=== PATIENT | female | born 1950 | race Caucasian/White ===

== ENCOUNTER → 2024-12-06 | Outpatient (CLI) | payer MEDICARE, SELFPAY ==
[2024-12-06 16:20] LABS: Albumin, Serum 3.8 g/dL (3.4-4.8); Anion Gap 13 (5-15); BUN 22 mg/dL (4-19); BUN/Creat Ratio 16.4 RATIO (10-20); Calcium,Total 9.6 mg/dL (7.6-11.0); Chloride 105 mmol/L (98-108); Creatinine, Serum 1.32 mg/dL (0.70-1.20); EST Glomerular Filtration Rate 42 (>60); Glucose 94 mg/dL (70-99); Potassium 4.8 mmol/L (3.3-5.1); Sodium Level 139 mmol/L (133-145)
== END | disposition home or self-care (01) ==
LOC: MTLAB 11:02
PROVIDERS: PCP Family Medicine; Referring Provider Specialist; Visit Provider Specialist
DX: Z01.818 Encounter for other preprocedural examination (principal)
CPT/HCPCS: 36415; 80048; 82040

== ENCOUNTER 2024-12-13 13:21 | Inpatient (IN) | payer MEDICARE, SELFPAY ==
[2024-12-13] VITALS (7 sets, daily range): BP systolic 124–164; BP diastolic 64–77; PULSE 63–84; RESP 16–18; TEMP 36.5; O2SAT 94–99; BMI 38.9; BMI 37.3
--- NOTE | 2024-12-13 13:39 | EX.ED.DYSGE1 ---
HPI <Dr. Saman Rowell MD - Last Filed: 12/16/24 06:50> History of Present Illness Chief Complaint: Wound Check Detail of Chief Complaint: Sent from surgery due to enlarging abdominal wall hematoma Informant: patient Onset/Context/Timing Onset: Days Context: Sudden Onset Timing: Continuous Quality: Pain, swelling and large hematoma predominately left lower quadrant Location: Left lower quadrant with a expansion to the right lower inguinal area Current Severity: Moderate Maximum Severity: Moderate Worsened by: Lovenox Relieved by: Nothing Associated Symptoms Associated Symptoms: No orthostatic symptoms. No hematuria. No black or maroon stool Narrative Narrative: Patient is a 74-year-old woman. Noticed that she was scheduled for left hip surgery by Dr. Jefe Eastman. The surgery was canceled because of the large hematoma. States her last dose of Lovenox was last evening. She is on anticoagulant because of history of DVT left lower extremity that occurred many years ago and atrial fibrillation. Patient denies hematuria, melena or maroon-colored stool. She denies history of trauma. Prior similar symptoms: No Recent Illness/Hospitalization: No PFSH <Dr. Saman Rowell MD - Last Filed: 12/16/24 06:50> PFSH Medical History Wears glasses Post-menopausal Cancer History of steroid therapy Diabetes Walker as ambulation aid Ambulates with cane Arthritis Kidney stones Anemia High cholesterol DVT (deep venous thrombosis) Easy bruising Excessive bleeding Back pain Non-smoker Shortness of breath on exertion History of edema History of echocardiogram History of stress test Hypertension Cardiology follow-up encounter History of atrial fibrillation Hx of retinal detachment Home Medications ?Medication ?Instructions ?Recorded ?Last Taken ?Type allopurinol 100 mg tablet 100 mg PO DAILY 12/05/24 12/12/24 21:00 History brimonidine 0.2 % eye drops 1 drp ophthalmic (eye) TID 12/05/24 12/13/24 12:00 History cholecalciferol (vitamin D3) 50 50 mcg PO DAILY 12/05/24 12/13/24 08:00 History mcg (2,000 unit) tablet (D3 DOTS) latanoprost 0.005 % eye drops 1 drp ophthalmic (eye) QHS 12/05/24 12/12/24 21:00 History losartan 100 mg tablet 100 mg PO DAILY 12/05/24 12/13/24 09:00 History metformin 500 mg tablet 500 mg PO DAILY 12/05/24 12/12/24 21:00 History metoprolol tartrate 25 mg tablet 25 mg PO BID 12/05/24 12/13/24 History pravastatin 40 mg tablet 40 mg PO DAILY 12/05/24 12/12/24 21:00 History warfarin 5 mg tablet 2.5 mg PO MOTH 12/05/24 12/06/24 History Held on 12/15/24. Instructions: Resume on 12/19/24. warfarin 5 mg tablet 5 mg PO SUTUWEFRSA 12/05/24 12/08/24 History Held on 12/15/24. Instructions: Resume on 12/19/24. diltiazem HCl 180 mg 180 mg PO DAILY 12/13/24 12/12/24 09:00 History capsule,extended release 24 hr, controlled (DILT-XR) ferrous sulfate 325 mg (65 mg 325 mg PO BID 12/13/24 12/13/24 09:00 History iron) tablet (FeroSul) folic acid 800 mcg tablet 800 mcg PO DAILY 12/13/24 12/13/24 08:00 History Allergy/AdvReac Type Severity Reaction Status Date / Time cefazolin (From Ancef) Allergy Severe Itching Verified 12/13/24 13:25 codeine Allergy Severe Nausea/Vom/ Verified 12/13/24 13:25 Diarrhea hydromorphone (From Dilaudid) Allergy Severe Nausea/Vom/ Verified 12/13/24 13:25 Diarrhea meperidine (From Demerol) Allergy Severe Nausea/Vom/ Verified 12/13/24 13:25 Diarrhea metronidazole (From Flagyl) Allergy Severe Hives Verified 12/13/24 13:25 milk (dairy) Allergy Severe Diarrhea Verified 12/13/24 13:25 morphine Allergy Severe Nausea/Vom/ Verified 12/13/24 13:25 Diarrhea Surgical History Hx of toe surgery History of kidney surgery History of surgery of liver Hx of surgical procedure Hx of laparoscopy History of surgery on right wrist History of foot surgery Hx of total knee replacement Hx of hysterectomy Hx of section Hx of bilateral cataract extraction Hx of appendectomy Social History Smoking Status: Never smoker ROS <Dr. Saman Rowell MD - Last Filed: 12/16/24 06:50> ROS ED Constitutional Constitutional ED: Denies chills, fever(s), subjective, sweats or weight loss Eyes Eyes: Denies blurry vision or change in vision ENT ENT ED: Denies ear pain or rhinorrhea Cardiovascular Cardiovascular: Denies chest pain or palpitations Respiratory/Chest Respiratory/Chest: Denies cough, dyspnea or dyspnea on exertion Gastrointestinal Gastrointestinal: Reports abdominal pain; Denies constipation, diarrhea, melena, nausea or vomiting Genitourinary Genitourinary ED: Denies hematuria Musculoskeletal Musculoskeletal: Denies arthralgias or myalgias Integumentary Reports other Details: Large hematoma abdominal wall Neurologic Neurologic: Denies paresthesias or weakness Hematologic/Lymphatic Hematologic/Lymphatic: Reports systems reviewed and no addt'l complaints, except as documented and easy bruising EXAM <Dr. Saman Rowell MD - Last Filed: 12/16/24 06:50> Physical Exam Const Vital Signs: 12/13/24 13:25 12/13/24 15:24 12/13/24 17:00 Temperature 97.7 F L Temperature Source Temporal Pulse Rate 63 84 74 Respiratory Rate 18 16 16 Blood Pressure 127/77 H 124/76 H 164/69 H Blood Pressure Mean 93 92 100 Pulse Ox 97 99 98 Oxygen Delivery Method Room Air Room Air Room Air 12/13/24 19:00 12/13/24 21:00 Temperature Temperature Source Pulse Rate 71 Respiratory Rate Blood Pressure 133/70 H 131/64 H Blood Pressure Mean 91 86 Pulse Ox 96 Oxygen Delivery Method Room Air Positive well nourished and well developed Constitutional Narrative: Patient appears pale. Blood pressure slightly elevated. General Appearance ED: well developed; Negative for pallor HEENT Reports moist mucous membranes HEENT Narrative: Head is atraumatic normocephalic. Ears normal. Nares patent Eyes PERRL and EOMs intact bilaterally Eyes Narrative: Sclera is blue. She has history of osteogenic imperfecta. General Eye ED: Negative for pale conjunctiva or scleral icterus Neck no lymphadenopathy, supple and no JVD Resp normal respiratory effort and clear to auscultation bilaterally Cardio regular rate, S1 normal heart sound, S2 normal heart sound and no murmurs GI GI Narrative: Large hematoma predominate left lower quadrant slightly left upper quadrant inferiorly and extending past midline to the right lower abdomen inguinal area. This is very firm. It is discolored. Does not appear ischemic. Is not pulsatile. Back/Spine no CVA tenderness Extremity normal to inspection Neuro oriented x3 and CN's II-XII intact bilaterally Sensorium / Orientation: alert Psych mental status grossly normal Skin no rashes or lesions noted and no wounds General Skin Exam: Negative for jaundice or pallor <Dr. Nguyễn Diaz DO - Last Filed: 12/14/24 01:00> Physical Exam Const Vital Signs: 12/13/24 13:25 12/13/24 15:24 12/13/24 17:00 Temperature 97.7 F L Temperature Source Temporal Pulse Rate 63 84 74 Respiratory Rate 18 16 16 Blood Pressure 127/77 H 124/76 H 164/69 H Blood Pressure Mean 93 92 100 Pulse Ox 97 99 98 Oxygen Delivery Method Room Air Room Air Room Air 12/13/24 19:00 12/13/24 21:00 Temperature Temperature Source Pulse Rate 71 Respiratory Rate Blood Pressure 133/70 H 131/64 H Blood Pressure Mean 91 86 Pulse Ox 96 Oxygen Delivery Method Room Air MDM <Dr. Saman Rowell MD - Last Filed: 12/16/24 06:50> MDM MDM Narrative Medical decision making narrative: Patient with significant hematoma. Concerned that she may have arterial bleed. Will obtain CTA of the abdomen pelvis to determine if there is any active bleeding. Will also obtain coags since she is present on Lovenox. She has not taken a dose of warfarin since this weekend. CBC to assess H&H. BMP to assess BUN to creatinine ratio and renal function. Also to assess glucose since she is diabetic and anion gap. History & Record Review Additional record(s) reviewed:: Prior outpatient record (Outpatient H&P performed December 05 by YAZMIN Zhou in our or orthopedics.) Lab Data Attestation: I reviewed the patient's lab results. Lab results narrative: Electrolyte panel Veals BUN/creatinine 24 1.44. H&H is 9.1 and 29.1. 1 week ago was 10.1 and 33.3. PT is slightly elevated 17.9 with an INR 1.4 and PTT of 28.7. Labs: Laboratory Results - last 24 hr 12/13/24 12:20 Crossmatch See Detail Radiography Diagnostic Testing: Clinical Impression(s) from Imaging Studies Abdomen/Pelvis CTA 12/13/24 15:03 IMPRESSION: Trace contrast blush in the dominant 9.2 x 5.8 by 5.7 cm left lower abdominal subcutaneous fluid collection compatible with extravasation. 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 Reading Location: [employer] Call was placed to Dr. Montemayor to see if he is available and if there is something he could deal with otherwise suspect she will need transfer to facility with interventional radiologist. Management Discussion w/another healthcare provider: Other (Spoke with nurse transfer line for [facility]. After discussion we will start with hospitalist. They do have interventional radiologist available.) Treatment and Re-Evaluation :: Spoke with the vascular COMMISSIONING AGENT. This is something that will require interventional radiology. Will ask patient where she like to be transferred. Comments:: [place] was asked to [facility] to see if they have interventional radiologist otherwise contact [facility] To determine if they have beds available. <Dr. Nguyễn Diaz, DO - Last Filed: 12/14/24 01:00> [facility] Lab Data Labs: Laboratory Results - last 24 hr 12/13/24 12:20 Crossmatch See Detail Radiography Diagnostic Testing: Clinical Impression(s) from Imaging Studies Abdomen/Pelvis CTA 12/13/24 15:03 IMPRESSION: Trace contrast blush in the dominant 9.2 x 5.8 by 5.7 cm left lower abdominal subcutaneous fluid collection compatible with extravasation. 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 Reading Location: [employer] [facility] [facility] Call was placed to Dr. Montemayor to see if he is available and if there is something he could deal with otherwise suspect she will need transfer to facility with interventional radiologist. Treatment and Re-Evaluation Comments:: [place] was asked to [facility] to see if they have interventional radiologist otherwise contact [facility] To determine if they have beds available. 1725: Le. Patient signed out to me awaiting transfer as this was recommended by vascular team here. I spoke with hospitalist Dr. Giraldo at [facility]. Discussed history and findings. He medically stable at this time. Last hemoglobin nearly 6 hours ago. She requests redraw H&H which is ordered. Patient is accepted will await transfer. Of any significant drops in hemoglobin or blood pressure will recontact facility. 1800: Hemoglobin 8.5 slightly lower than 9.1 blood pressure stable. Waiting for bed. Patient has not eaten since last night we will allow clear liquids at this time. 1924: Received call back from transfer line after discussion with hemoglobin at 8.5, they called their hospitalist, they request me talk to the interventional radiologist which I spoke with Dr. Oconnor, spoke with him with the findings. He states with subcutaneous bleeding there would be no interventional role. I did discuss with him that transfer is recommended from our vascular surgeon team therefore capabilities would not be here. They will relay back to their medicine team. Still waiting bed at this time. 1930: Received call back from transfer line now hospitalist declines the transfer request. 1950: I spoke with general surgery here Dr. Graham, discussed patient's history and findings and care in the emergency department and discussion with interventional radiology. He reviewed the imaging. He will evaluate the patient in the ED. EKG obtained noting sinus rhythm rate of [address] findings. Patient was evaluated by general surgery Dr. Graham. He communicated specifically with Dr. Montemayor who will also be on consult in the hospital. He discussed with hospitalist Dr. Mata who will be primary admit. Therefore patient will be admitted here for further monitoring and management. Discharge Plan Dx/Rx/DC Orders Clinical Impression: Nontraumatic hematoma of skin and subcutaneous tissue, Anemia associated with acute blood loss, Osteogenesis imperfecta, History of hypertension, Type 2 diabetes mellitus Disposition Disposition: Acute Care Hospital [facility] Discharge Date/Time: 12/13/24 22:58
[2024-12-13 14:51] LABS: Anion Gap 14 (5-15); BUN 24 mg/dL (4-19); BUN/Creat Ratio 16.8 RATIO (10-20); Calcium,Total 9.2 mg/dL (7.6-11.0); Carbon Dioxide 19.6 mmol/L (21.0-32.0); Chloride 106 mmol/L (98-108); Creatinine, Serum 1.44 mg/dL (0.70-1.20); EST Glomerular Filtration Rate 38 (>60); Glucose 127 mg/dL (70-99); Potassium 4.9 mmol/L (3.3-5.1); Sodium Level 139 mmol/L (133-145)
--- NOTE | 2024-12-13 15:03 | CT_ITS ---
PROCEDURE: CTA ABD/PELVIS W/WO CONTRAST 12/13/2024 REASON FOR EXAM: EXPANDING ABDOMINAL WALL HEMATOMA ON Lovenox; history of appendectomy and hysterectomy TECHNIQUE: Abdomen and pelvis CT with intravenous contrast performed in portal venous phase. Coronal and Sagittal reconstruction series were provided. PATIENT PREPARATION: Per protocol CONTRAST: Isovue-300 VOLUME: 100 mL IV One or more dose reduction techniques were used (e.g., Automated exposure control, adjustment of the mA and/or kV according to patient size, use of iterative reconstruction technique. RADIATION DOSE SUMMARY: DLP: 1110.88 mGycm COMPARISON: None FINDINGS: Lung bases: Clear Liver: Multiple cysts. Gallbladder: Within normal limits. Spleen: Normal size. Pancreas: Diffuse fatty atrophy. Adrenals: No adrenal nodule. Kidneys: Numerous bilateral renal cysts. Left renal AML. Bladder: No wall thickening. Reproductive Organs: Prior hysterectomy. Bowel: No bowel obstruction. Appendix: Surgically absent. Lymph nodes: No suspicious lymph node enlargement. Vasculature: The abdominal aorta and IVC are patent. Infrarenal IVC filter.. Peritoneum / Retroperitoneum: 5.0 x 2.7 x 2.6 cm gastrohepatic cystic structure. Bones: Degenerative changes of the spine. Low left subcutaneous abdominal wall fluid collections with fluid levels and trace contrast blush. Surrounding inflammatory stranding. Inferior abdominal wall varices. CT/CTA Abd/Pelvis W/WO Contrast IMPRESSION: Trace contrast blush in the dominant 9.2 x 5.8 by 5.7 cm left lower abdominal s ubcutaneous fluid collection compatible with extravasation. 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 Reading Location[facility]
[2024-12-13 17:55] LABS: Hematocrit 27.2 % (37-47); Hemoglobin 8.5 g/dL (12.0-15.0)
[2024-12-13] MEDS: Ondansetron 4 MG/2 ML Vial IV (18:01)
[2024-12-13] MEDS: fentaNYL 100 MCG/2 ML Ampul 25 MCG IV (18:02)
--- NOTE | 2024-12-13 18:17 | ED.RN ---
THIS RN IN TO DRAW REPEAT H AND H ON PT. PT EXTREMELY PAINFUL. ORDER RECEIVED FOR FENTANYL AND TO PACK PT IN ICE. PT THEN REQUESTS SOMETHING FOR NAUSEA. STATES WAS GIVEN ZOFRAN PREVIOUSLY AND DID OKAY. PT HAS ZOFRAN LISTED AN ALLERGY, BUT ALLERGY IS REMOVED WITH PT PERMISSION. PT ABDOMEN PACKED WITH ICE PER DR SMALLS
--- NOTE | 2024-12-13 19:50 | EKG12_ITS ---
Test Reason : DYSRHYTHMIA Blood Pressure : */* mmHG Vent. Rate : 70 BPM Atrial Rate : 70 BPM P-R Int : 160 ms QRS Dur : 88 ms QT Int : 388 ms P-R-T Axes : 45 35 56 degrees QTcB Int : 419 ms Sinus rhythm with Premature supraventricular complexes Nonspecific ST and T wave abnormality Abnormal ECG Confirmed by Link Gooden ([id number]), order editor BARRON BALBUENA ([id number]) on 12/14/2024 12:47:04 PM Referred By: Saman Rowell Confirmed By: Link Gooden
--- NOTE | 2024-12-13 20:04 | EKG12_ITS ---
Test Reason : DYSRHYTHMIA Blood Pressure : */* mmHG Vent. Rate : 68 BPM Atrial Rate : 61 BPM P-R Int : 170 ms QRS Dur : 86 ms QT Int : 382 ms P-R-T Axes : 59 32 51 degrees QTcB Int : 406 ms Normal sinus rhythm Nonspecific ST and T wave abnormality Abnormal ECG No previous ECGs available Confirmed by LINO NORTON, AZEEM ([id number]), assistant film editor BARRON BALBUENA ([id number]) on 12/17/2024 10:39:02 AM Referred By: Saman Rowell Confirmed By: AZEEM HUYNH MD
--- NOTE | 2024-12-13 21:05 | PCM.HP.STD ---
HPI - General General Date of Admission: 12/13/24 Date of Service: 12/13/24 Chief Complaint: Worsening abdominal wall hematoma HPI Narrative HUMBERTO LONGO, is a 74 F who presented to [facility] ED on 12/13/2024 with worsening abdominal wall hematoma. Patient follows with Dr. Eastman with orthopedics and plan today was for right total hip replacement for incomplete right hip subcapital femur fracture. Patient has history of A-fib and remote DVT, follows with cardiology in [place]. Per cardiology recommendations patient was being bridged perioperatively from Coumadin with therapeutic Lovenox. Patient began to notice an abdominal wall hematoma about 2 days ago. However over the past 24 hours it has significantly worsened. Dr. Eastman saw her today and canceled the surgery because of this large hematoma and she was sent to the ED for further evaluation. In the ED she was normotensive and stable on room air. Noted to have hemoglobin trend from 10.1 on 12/04 to 9.1 today at noon. Repeat hemoglobin at 5:30 PM was 8.5. CTA abdomen pelvis showed a 9.2 x 5.8 x 5.7 cm left lower abdominal subcutaneous fluid collection consistent with hematoma. Initial plan was for transfer but upon speaking with interventional radiology at outside hospital, they noted that with subcutaneous bleeding there was no interventional role so request for transfer was denied. Patient was then evaluated by both general surgery and vascular surgery here at the bedside. I discussed with Dr. Graham over the phone who noted no urgent need for surgical intervention; recommended repeat CBC in the morning and repeat CTA abdomen pelvis tomorrow afternoon for further evaluation. Will be admitted under the hospital medicine service. I saw the patient at bedside in the ED. Patient was sitting back comfortably in bed, conversing normally, in no acute distress. She had been given doses of IV Zofran and fentanyl in the ED with good improvement in nausea and pain. Also had a weighted bag placed over the hematoma with improved comfort. She otherwise feels well, denies any other acute concerns at this time. [facility] Medical History Wears glasses Post-menopausal Cancer History of steroid therapy Diabetes Walker as ambulation aid Ambulates with cane Arthritis Kidney stones Anemia High cholesterol DVT (deep venous thrombosis) Easy bruising Excessive bleeding Back pain Non-smoker Shortness of breath on exertion History of edema History of echocardiogram History of stress test Hypertension Cardiology follow-up encounter History of atrial fibrillation Hx of retinal detachment Home Medications ?Medication ?Instructions ?Recorded ?Last Taken ?Type allopurinol 100 mg tablet 100 mg PO DAILY 12/05/24 12/12/24 21:00 History brimonidine 0.2 % eye drops 1 drp ophthalmic (eye) TID 12/05/24 12/13/24 12:00 History cholecalciferol (vitamin D3) 50 50 mcg PO DAILY 12/05/24 12/13/24 08:00 History mcg (2,000 unit) tablet (D3 DOTS) latanoprost 0.005 % eye drops 1 drp ophthalmic (eye) QHS 12/05/24 12/12/24 21:00 History losartan 100 mg tablet 100 mg PO DAILY 12/05/24 12/13/24 09:00 History metformin 500 mg tablet 500 mg PO DAILY 12/05/24 12/12/24 21:00 History metoprolol tartrate 25 mg tablet 25 mg PO BID 12/05/24 12/13/24 History pravastatin 40 mg tablet 40 mg PO DAILY 12/05/24 12/12/24 21:00 History warfarin 5 mg tablet 2.5 mg PO MOTH 12/05/24 12/06/24 History warfarin 5 mg tablet 5 mg PO SUTUWEFRSA 12/05/24 12/08/24 History diltiazem HCl 180 mg 180 mg PO DAILY 12/13/24 12/12/24 09:00 History capsule,extended release 24 hr, controlled (DILT-XR) enoxaparin 80 mg/0.8 mL 80 mg subcut Q12H 12/13/24 12/13/24 09:00 History subcutaneous syringe ferrous sulfate 325 mg (65 mg 325 mg PO BID 12/13/24 12/13/24 09:00 History iron) tablet (FeroSul) folic acid 800 mcg tablet 800 mcg PO DAILY 12/13/24 12/13/24 08:00 History Allergy/AdvReac Type Severity Reaction Status Date / Time cefazolin (From Ancef) Allergy Severe Itching Verified 12/13/24 13:25 codeine Allergy Severe Nausea/Vom/ Verified 12/13/24 13:25 Diarrhea hydromorphone (From Dilaudid) Allergy Severe Nausea/Vom/ Verified 12/13/24 13:25 Diarrhea meperidine (From Demerol) Allergy Severe Nausea/Vom/ Verified 12/13/24 13:25 Diarrhea metronidazole (From Flagyl) Allergy Severe Hives Verified 12/13/24 13:25 milk (dairy) Allergy Severe Diarrhea Verified 12/13/24 13:25 morphine Allergy Severe Nausea/Vom/ Verified 12/13/24 13:25 Diarrhea Surgical History Hx of toe surgery History of kidney surgery History of surgery of liver Hx of surgical procedure Hx of laparoscopy History of surgery on right wrist History of foot surgery Hx of total knee replacement Hx of hysterectomy Hx of section Hx of bilateral cataract extraction Hx of appendectomy Social History Smoking Status: Never smoker ROS Constitutional Constitutional: Denies chills, fatigue, fever(s) or weakness Eyes Eyes: Denies change in vision Cardiovascular Cardiovascular: Denies chest pain Respiratory/Chest Respiratory/Chest: Denies shortness of breath at rest Gastrointestinal Gastrointestinal: Reports abdominal pain and nausea; Denies constipation, diarrhea or vomiting Musculoskeletal Musculoskeletal: Denies arthralgias or myalgias Neurologic Neurologic: Denies dizziness or headache(s) Vital Signs Vital Signs Vital Signs: 12/13/24 13:25 12/13/24 15:24 12/13/24 17:00 Temperature 97.7 F L Temperature Source Temporal Pulse Rate 63 84 74 Respiratory Rate 18 16 16 Blood Pressure 127/77 H 124/76 H 164/69 H Blood Pressure Mean 93 92 100 Pulse Ox 97 99 98 Oxygen Delivery Method Room Air Room Air Room Air 12/13/24 19:00 Temperature Temperature Source Pulse Rate 71 Respiratory Rate Blood Pressure 133/70 H Blood Pressure Mean 91 Pulse Ox 96 Oxygen Delivery Method Room Air Weight Weight: 87.589 kg Body Mass Index (BMI) 38.9 Physical Exam Const alert, oriented x3 and no apparent distress Constitutional Narrative: Pleasant elderly female, class II obesity, sitting back comfortably in bed, conversing normally, in no acute distress. General Appearance: cooperative and comfortable HEENT normocephalic, head/scalp atraumatic, hearing grossly normal bilaterally, nasal mucous membranes and turbinates normal and moist oral mucous membranes Eyes PERRL, EOMs intact bilaterally and conjunctivae normal Neck full ROM Chest inspection of chest normal Resp normal respiratory effort, normal air movement, no use of accessory muscles and clear to auscultation bilaterally Cardio regular rate, regular rhythm, no murmurs and peripheral pulses 2+ throughout GI normal to inspection, nondistended, normoactive bowel sounds, soft to palpation, non-tender and non-distended GI Narrative: Significant left-sided abdominal wall bruising and swelling noted. Back/Spine normal ROM Extremity normal to inspection, full ROM and no pedal edema Psych mental status grossly normal Results Lab / Micro Data 12/13/24 17:30 12/13/24 11:55 Labs: Laboratory Results - last 24 hr 12/13/24 11:55: Sodium 139, Potassium 4.9, Chloride 106, Carbon Dioxide 19.6 L, Anion Gap 14, BUN 24 H, Creatinine 1.44 H, Est GFR (MDRD) Non-Af 38 L, BUN/Creatinine Ratio 16.8, Glucose 127 H, Calcium 9.2 12/13/24 17:30: Hgb 8.5 L, Hct 27.2 L Imaging Radiology Impression Abdomen/Pelvis CTA 12/13/24 15:03 IMPRESSION: Trace contrast blush in the dominant 9.2 x 5.8 by 5.7 cm left lower abdominal subcutaneous fluid collection compatible with extravasation. 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 Reading [facility] Assessment & Plan Assessment/Plan (1) Abdominal wall hematoma: (2) Anemia associated with acute blood loss: PLAN: Plan Patient is a 74-year-old female who presented to [facility] ED on 12/13/2024 with worsening abdominal wall hematoma. 1. Abdominal wall hematoma with acute blood loss anemia, history of iron deficiency anemia ? Admit under inpatient status to PCU. General surgery and vascular surgery consulted. CTA abdomen pelvis showed a 9.2 x 5.8 x 5.7 cm left lower abdominal subcutaneous fluid collection consistent with hematoma. Presumed secondary to therapeutic subcu Lovenox injections. Hemoglobin trend 9.1 > 8.5 in the ED, baseline around 10-11. Per general surgery, will repeat CBC in the morning and plan for repeat CTA abdomen pelvis tomorrow afternoon. Will remain on clear liquid diet for now in case of need for surgical procedure. Holding blood thinners at this time. Continue home iron supplement. 2. Paroxysmal A-fib and remote history of DVT on Coumadin, remote history of IVC filter placement ? Follows with cardiology in [place]. Has been on Coumadin for years without significant bleeding issues. Unable to find cardiology notes but per patient, notes very infrequent episodes of palpitations. EKG with normal sinus rhythm on admit. CTA abdomen pelvis on admit confirmed IVC filter in place. INR 1.4 on admit. Holding all blood thinners at this time. Okay to continue home diltiazem. 3. Acute debility secondary to left incomplete subcapital hip fracture ? PT/OT/case management consulted. Plan was for left total hip replacement with orthopedic surgery on 12/13 but surgery canceled due to abdominal wall hematoma. Will likely be okay for discharge home but will need close outpatient follow-up to reschedule surgery. 4. Elevated creatinine ? Creatinine 1.44 on admit. Baseline unclear, only other creatinine in system was 1.32 on 12/06. Monitor daily BMP and urine output. Chronic medical conditions: ? Class II obesity: BMI 37 on admit. Complicates hospital course, care and prognosis. ? Hypertension, hyperlipidemia: Continue home pravastatin and diltiazem. Holding home losartan. Unclear if patient is truly on Lopressor as she is already on diltiazem as well, will hold Lopressor for now. ? Type 2 diabetes mellitus: Hold home metformin. Will treat with sliding scale insulin with meals while inpatient. ? History of gout: Continue home allopurinol. DVT prophylaxis: SCDs CODE STATUS: Full code, verified Expected disposition: TBD Total clinical time spent by myself addressing the patient's medical issues, reviewing all the data, and collaborating with patient's care team: 75 minutes. Charges/Coding Visit Charges Inpatient E&M: 84182 Init Hosp L3
--- NOTE | 2024-12-13 21:07 | EX.PCM.CON.S ---
Assessment & Plan Assessment/Plan (1) Nontraumatic hematoma of skin and subcutaneous tissue: PLAN: Patient is 74-year-old female who is pending elective total hip arthroplasty on the right when she developed a subcutaneous hematoma of the abdominal wall on the left while administering Lovenox injections on a bridge from Coumadin. Imaging indicates presence of a blush in patient's hemoglobin did downtrend from both her preoperative level as well as even during her emergency room stay. Still, she remains asymptomatic from this anemia and the decrease is just 0.5 g/dL. In reviewing patient's CT imaging there seems to be evidence of a abdominal wall cardiovascular disease specialist bleed and no large vessel bleed. Therefore, I can understand interventional radiology's assessment and reason for declining any intervention. I also discussed case briefly with vascular surgery who stated they were comfortable with patient remaining in [place] and would be on hand for any assistance should patient require intervention. On eliciting the cause for patient's anticoagulation status and confirming these to be history of paroxysmal atrial fibrillation and remote DVT I remained unclear as to why she required a bridge in the first place. After discussion with hospitalist service patient is deemed appropriate for hold of all anticoagulation until we can establish tamponade with her abdominal wall hematoma. Thus it is my request that patient be admitted to hospitalist service with surgery consulting. Will plan for patient to remain on clear liquid diet in the unlikely event that she would require intervention for this hematoma. Additionally I request repeat CBC in a.m. and probable repeat CT imaging of the abdomen pelvis at approximately 24 hours to confirm stability. If we are able to make this confirmation of stability I believe patient could then be discharged to appropriate outpatient follow-up. This follow-up could include surgery and cardiology/PCP (I encourage patient to discuss her need for chronic anticoagulation). I also did discuss with patient and her granddaughter who was at bedside that this hematoma would likely take months to resolve spontaneously. I also discussed the indications for which we would consider evacuation/more aggressive intervention including infection or persistent expansion. Patient confirms understanding. ? Continue to hold all anticoagulation ? Continue clear liquid diet ? Sandbag to left anterior abdominal wall ? Repeat CBC in a.m. ? Repeat CT imaging of the abdomen pelvis with intravenous contrast (CTA) in 24 hours ? Notify surgery of any acute status changes Link Graham MD General Surgery Endocrine Surgery Pager: [facility] [address] [place] [address], Outpatient Pavilion, [address] [place] [address] Office: [phone] HPI Consult Data Date of Consult: 12/13/24 HPI Narrative Reason for Consultation: Abdominal wall hematoma HPI Narrative: HUMBERTO LONGO, is a 74 F who presents to [facility] ER after her surgery for an elective hip replacement was canceled on the account of a left abdominal wall hematoma. Patient has a history of paroxysmal atrial fibrillation and a remote history of DVT (she states well over 20 years ago) for which she was taking a Lovenox bridge from Coumadin in anticipation of the surgery. She states that 2 days ago she began with some bruising and swelling that intensified yesterday. She notified her surgeon but was directed to present for surgery anyhow to be evaluated for a final yes or no whether or not they would be able to proceed. On noting the severity of her hematoma she was directed to the ER by orthopedic surgery. Patient underwent laboratory testing as well as CT imaging in the emergency department. The former showed that her hemoglobin had dropped from her preoperative level of 10.1-9.1. Moreover her CT imaging of the abdomen pelvis showed a large 9 cm x 4 cm subcutaneous hematoma with blush. Originally emergency medicine reached out to vascular surgery who advised patient be transferred for consideration of IR angioembolization. Patient initially received acceptance through [facility] but upon review by their IR team they stated that there was no intervention to be performed. It was at this point that I was contacted to see if patient may be able to remain here at [facility]. Patient states that she presently has no pain with pain medication application of ice. She denies any lightheadedness or dizziness. She confirms that the area seems to be stable in size from where it was noted to be yesterday. Hemoglobin was rechecked after transfer was declined and found only me minimally decreased at 8.5. Additionally, emergency medicine performed EKG which showed patient reportedly in sinus rhythm. Patient confirms that she had a IVC filter placed some 15 to 20 years ago when she was pending an orthopedic procedure after she had been recently diagnosed with her DVT. [facility] Medical History Wears glasses Post-menopausal Cancer History of steroid therapy Diabetes Walker as ambulation aid Ambulates with cane Arthritis Kidney stones Anemia High cholesterol DVT (deep venous thrombosis) Easy bruising Excessive bleeding Back pain Non-smoker Shortness of breath on exertion History of edema History of echocardiogram History of stress test Hypertension Cardiology follow-up encounter History of atrial fibrillation Hx of retinal detachment Home Medications ?Medication ?Instructions ?Recorded ?Last Taken ?Type allopurinol 100 mg tablet 100 mg PO DAILY 12/05/24 12/12/24 History brimonidine 0.2 % eye drops 1 drp ophthalmic (eye) TID 12/05/24 12/12/24 History cholecalciferol (vitamin D3) 50 50 mcg PO DAILY 12/05/24 12/10/24 History mcg (2,000 unit) tablet (D3 DOTS) latanoprost 0.005 % eye drops 1 drp ophthalmic (eye) QHS 12/05/24 12/12/24 History losartan 100 mg tablet 100 mg PO DAILY 12/05/24 12/13/24 History metformin 500 mg tablet 500 mg PO DAILY 12/05/24 12/12/24 History metoprolol tartrate 25 mg tablet 25 mg PO BID 12/05/24 12/13/24 History pravastatin 40 mg tablet 40 mg PO DAILY 12/05/24 12/12/24 History warfarin 5 mg tablet 2.5 mg PO MOTH 12/05/24 12/06/24 History warfarin 5 mg tablet 5 mg PO SUTUWEFRSA 12/05/24 12/08/24 History enoxaparin 80 mg/0.8 mL mg subcut 12/13/24 12/12/24 History subcutaneous syringe ferrous sulfate 325 mg (65 mg 325 mg PO BID 12/13/24 12/12/24 History iron) tablet (FeroSul) folic acid 800 mcg tablet 800 mcg PO DAILY 12/13/24 12/12/24 History Allergy/AdvReac Type Severity Reaction Status Date / Time cefazolin (From Ancef) Allergy Severe Itching Verified 12/13/24 13:25 codeine Allergy Severe Nausea/Vom/ Verified 12/13/24 13:25 Diarrhea hydromorphone (From Dilaudid) Allergy Severe Nausea/Vom/ Verified 12/13/24 13:25 Diarrhea meperidine (From Demerol) Allergy Severe Nausea/Vom/ Verified 12/13/24 13:25 Diarrhea metronidazole (From Flagyl) Allergy Severe Hives Verified 12/13/24 13:25 milk (dairy) Allergy Severe Diarrhea Verified 12/13/24 13:25 morphine Allergy Severe Nausea/Vom/ Verified 12/13/24 13:25 Diarrhea Surgical History Hx of toe surgery History of kidney surgery History of surgery of liver Hx of surgical procedure Hx of laparoscopy History of surgery on right wrist History of foot surgery Hx of total knee replacement Hx of hysterectomy Hx of section Hx of bilateral cataract extraction Hx of appendectomy Social History Smoking Status: Never smoker Physical Exam Const alert, oriented x3 and no apparent distress Constitutional Narrative: No distinct pallor General Appearance: cooperative Resp normal respiratory effort GI GI Narrative: Patient is obese with evidence of prior midline laparotomy incision that is well-healed. Left abdominal wall is tense with edema and distention from subcutaneous hematoma which has discolored the skin in this location. I do not feel any bounding pulsation or warmth. The skin integrity appears intact despite discoloration. Lab / Micro Data 12/13/24 17:30 12/13/24 11:55 Labs: Laboratory Results - last 24 hr 12/13/24 11:55: Sodium 139, Potassium 4.9, Chloride 106, Carbon Dioxide 19.6 L, Anion Gap 14, BUN 24 H, Creatinine 1.44 H, Est GFR (MDRD) Non-Af 38 L, BUN/Creatinine Ratio 16.8, Glucose 127 H, Calcium 9.2 12/13/24 17:30: Hgb 8.5 L, Hct 27.2 L Imaging Radiology Impression Abdomen/Pelvis CTA 12/13/24 15:03 IMPRESSION: Trace contrast blush in the dominant 9.2 x 5.8 by 5.7 cm left lower abdominal subcutaneous fluid collection compatible with extravasation. 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 Reading Location: [facility] Charges/Coding Visit Charges Inpatient E&M: 09531 Init Hosp L2
[2024-12-13 22:51] LABS: Xtra Tube EP Lab EXTRA TUBE
[2024-12-14] VITALS (10 sets, daily range): BP systolic 126–149; BP diastolic 50–54; PULSE 59–78; RESP 16–17; TEMP 35.9–37; O2SAT 97–100
[2024-12-14] MEDS: Acetaminophen 325 MG Tablet 650 MG PO ×3 (01:30→20:08)
[2024-12-14] MEDS: BRIMONIDINE 0.2% 5ML BOTTLE 1 DRP EACH EYE ×3 (05:49→20:09)
--- NOTE | 2024-12-14 07:23 | PCM.PN.SRG ---
Subjective Subjective Patient seen and examined during AM rounds. She reports no increase in her pain. She believes her abdominal process remains stable in size. She further denies any lightheadedness or dizziness. Objective Data Objective Data Vital Signs: Vital Signs Temp Pulse Resp BP Pulse Ox O2 Del Method 97.7 F L 66 16 131/64 H 94 Room Air 12/13/24 21:35 12/13/24 23:50 12/13/24 21:35 12/13/24 21:35 12/13/24 21:35 12/13/24 23:50 Oxygen Delivery Method Room Air Weight: 184 lb 15.485 oz Body Mass Index (BMI) 37.3 Lab / Micro Data 12/14/24 11:42 12/14/24 06:54 Labs: Laboratory Results - last 24 hr 12/13/24 11:55: Sodium 139, Potassium 4.9, Chloride 106, Carbon Dioxide 19.6 L, Anion Gap 14, BUN 24 H, Creatinine 1.44 H, Est GFR (MDRD) Non-Af 38 L, BUN/Creatinine Ratio 16.8, Glucose 127 H, Calcium 9.2 12/13/24 17:30: Hgb 8.5 L, Hct 27.2 L Radiography Diagnostic Testing: Radiology Impression Abdomen/Pelvis CTA 12/13/24 15:03 IMPRESSION: Trace contrast blush in the dominant 9.2 x 5.8 by 5.7 cm left lower abdominal subcutaneous fluid collection compatible with extravasation. 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 Reading Location: [facility] Physical Exam Const oriented x3 and no apparent distress Resp normal respiratory effort GI GI Narrative: Largely stable?appearing large, left abdominal wall hematoma with significant lateral and posterior spread with the superficial changes and discoloration Assessment & Plan Assessment/Plan (1) Nontraumatic hematoma of skin and subcutaneous tissue: PLAN: Patient is 74-year-old female who is pending elective total hip arthroplasty on the right when she developed a subcutaneous hematoma of the abdominal wall on the left while administering Lovenox injections on a bridge from Coumadin. Area appears stable today but repeat hemoglobin is slightly down trended. Patient remains asymptomatic for anemia ? Continue to hold all anticoagulation ? Okay to advance diet as tolerated ? Sandbag to left anterior abdominal wall ? Repeat CBC in a.m. ? Repeat CT imaging of the abdomen pelvis with intravenous contrast (CTA) in 24 hours ? Notify surgery of any acute status changes Dr. Boyer will be covering the weekend. Case discussed with Dr. Noel. Link Graham MD General Surgery Endocrine Surgery Pager: [facility] [address] [place] [address], [address] [place] [address] Office: [phone] Charges/Coding Visit Charges Inpatient E&M: 98103 Subs Hosp L2
[2024-12-14 07:25] LABS: Hemoglobin 7.5 g/dL (12.0-15.0); Mean Corp Hgb Conc 31.3 g/dL (32-36); Mean Corpuscular Hgb 28.2 pg (27.0-32.0); Mean Corpuscular Volume 90.2 fL (81-99); Mean Platelet Vol. 11.3 fl (6.2-12.0); Platelet Count 201 K/mm3 (150-450); RBC Distribution Width CV 17.2 % (11.6-14.6); RBC Distribution Width SD 55.9 fl (35.1-43.9); Red Blood Count 2.66 M/mm3 (4.2-5.4); White Blood Count 7.4 K/mm3 (4.4-11.0)
[2024-12-14 08:20] LABS: Anion Gap 10 (5-15); BUN 18 mg/dL (4-19); BUN/Creat Ratio 13.6 RATIO (10-20); Calcium,Total 8.6 mg/dL (7.6-11.0); Carbon Dioxide 22.1 mmol/L (21.0-32.0); Chloride 107 mmol/L (98-108); Creatinine, Serum 1.33 mg/dL (0.70-1.20); EST Glomerular Filtration Rate 41 (>60); Estimated Creatinine Clearance 34.57 ml/min (50-250); Glucose 103 mg/dL (70-99); Potassium 4.1 mmol/L (3.3-5.1); Sodium Level 139 mmol/L (133-145)
--- NOTE | 2024-12-14 09:57 | PN.HOSP_ITS ---
Subjective Subjective Doing well, no issues overnight. Hemoglobin has continued to drop will recheck an H&H in an hour. She says that she has been bridged several times for procedures in the past, she had a lower extremity DVT that was provoked 20 years ago after she had an ankle fracture and was in a cast, and then she has paroxysmal A-fib which is necessitating her Coumadin, she does not have a history of a mechanical heart valve therefore she does not need to be bridged for her anticoagulation Objective Data Objective Data Vital Signs: Vital Signs Temp Pulse Resp BP Pulse Ox O2 Del Method 97.1 F L 73 16 131/52 H 100 Room Air 12/14/24 09:43 12/14/24 09:43 12/14/24 09:43 12/14/24 09:43 12/14/24 09:43 12/14/24 09:43 Oxygen Delivery Method Room Air Weight: 184 lb 15.485 oz Body Mass Index (BMI) 37.3 Lab / Micro Data 12/14/24 06:54 12/14/24 06:54 Labs: Laboratory Results - last 24 hr 12/13/24 11:55: Sodium 139, Potassium 4.9, Chloride 106, Carbon Dioxide 19.6 L, Anion Gap 14, BUN 24 H, Creatinine 1.44 H, Est GFR (MDRD) Non-Af 38 L, BUN/Creatinine Ratio 16.8, Glucose 127 H, Calcium 9.2 12/13/24 17:30: Hgb 8.5 L, Hct 27.2 L 12/14/24 06:54: WBC 7.4, RBC 2.66 L, Hgb 7.5 L, Hct 24.0 L, MCV 90.2, MCH 28.2, MCHC 31.3 L, RDW Std Deviation 55.9 H, RDW Coeff of Miguel A 17.2 H, Plt Count 201, MPV 11.3, Sodium 139, Potassium 4.1, Chloride 107, Carbon Dioxide 22.1, Anion Gap 10, BUN 18, Creatinine 1.33 H, Estim Creat Clear Calc 34.57 L, Est GFR (MDRD) Non-Af 41 L, BUN/Creatinine Ratio 13.6, Glucose 103 H, Calcium 8.6 Radiography Diagnostic Testing: Radiology Impression Abdomen/Pelvis CTA 12/13/24 15:03 IMPRESSION: Trace contrast blush in the dominant 9.2 x 5.8 by 5.7 cm left lower abdominal subcutaneous fluid collection compatible with extravasation. 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 Reading Location: [facility], [facility] Physical Exam Narrative General: Alert, Oriented x3, Cooperative, No apparent distress HEENT: Atraumatic, PERRLA, EOMI, Normocephalic Oral: Moist Mucosa Neck: Supple, No JVD Lungs: Diminished, Normal air movement, No rhonchi, No wheeze, No rales Cardiovascular: Regular rate, Regular Rhythm, Normal S1, Normal S2, No murmurs Abdomen: Soft, Non Tender, Non-Distended, No Hepato-splenomegaly Extremities: No edema, Capillary Refill Less than 3 Seconds Skin: Left lower quadrant abdominal wall ecchymosis Musculoskeletal: No Tenderness to Palpation of Joints or Extremities Neurological: No focal neurological deficits, Motor Exam 5/5 strength throughout, Sensory exam intact to light touch and pain Psych/Mental Status: Normal Affect, Appropriate Assessment & Plan Assessment/Plan (1) Abdominal wall hematoma: (2) Anemia associated with acute blood loss: PLAN: Plan 1. Abdominal wall hematoma with acute blood loss anemia, history of iron deficiency anemia ? She has been taking Lovenox shots in preparation for an orthopedic surgery because she has been having her anticoagulation bridged for paroxysmal A-fib ? She has had a DVT in the past that was provoked, she denies mechanical heart valves, current VTE, or severe hypercoagulable state. Of note she also has an IVC filter in place ? I have advised her that she does not need to be bridged for anticoagulation, her [id number] score is a 5 which puts her at around the 6% stroke risk per year therefore it is safe to hold anticoagulation for several days prior to his surgical intervention and then resume 24 hours after. She would have better control with Eliquis however she is little bit nervous about Eliquis because her who was on it, it caused his blood pressures to be uncontrollable and so she is okay with continuing with Coumadin and INR studies ? Recheck H&H this afternoon ? No surgical intervention merited at this time ? Creatinine is down to 1.33 which is consistent with her baseline 2. Paroxysmal A-fib/essential HTN/HLD ? Continue with her home blood pressure medications ? Blood pressure stable ? Continue with her statin ? Monitor make adjustments as necessary 3. Acute debility secondary to left incomplete subcapital hip fracture ? PT/OT/case management consulted. Plan was for left total hip replacement with orthopedic surgery on 12/13 but surgery canceled due to abdominal wall hematoma. Will likely be okay for discharge home but will need close outpatient follow-up to reschedule surgery. 4. DM2 ? Continue with insulin ? Hold metformin ? Accu-Cheks ACHS ? Will monitor make adjustments as necessary DVT: SCDs Charges/Coding Visit Charges Inpatient E&M: 29010 Subs Hosp L2
[2024-12-14] MEDS: dilTIAZem CD 180 MG Capsule PO (10:01)
[2024-12-14] MEDS: Cholecalciferol (VIT D3) 25 MCG TABLET (1,000 UNITS) 50 MCG PO (10:02)
[2024-12-14] MEDS: Folic Acid 1 MG Tablet PO (10:02)
--- NOTE | 2024-12-14 10:27 | CASEMGMT ---
RACHEL GEIGER Assessment Face to Face with patient for initial transition planning/care coordination assessment. RACHEL GEIGER introduced self and role at [facility], pt voices understanding. Pt is A&Ox4 and is resting comfortably in bed and is calm. Care providers, pharmacy, and demographics verified. Admitting dx: Abdominal Wall Hematoma LACE Strata: 1 PCP: Brandon Arroyo Specialists: Raiza (Ortho), Roverto (Cardio) Preferred Pharmacy: [facility] Prescription Benefit: Yes LNOK: Steve Avila (Son) Living Arrangements: Pt lives with her 24 y/o GS in a single story home with a ramp to enter ADLs/IADLs: Pt states that she is independent and denies concerns Transportation: Pt states that she does not drive and that her son and neighbors drive her. Denies needs DME: Functioning [facility] with sufficient supplies. Pt states that she buys her supplies at [facility] for cheap. Pt also states that she has a cane, FWW, BP Machine, pulse ox (Pt is currently 100% on RA), grab bars, and shower chair HHC/SNF: Reports HH through [facility] in [place] x 6 months ago after a Lt TKR. Denies SNF Hx or needs Pt?s goal: Home Plan: Home with pt GS and support through her son and neighbors, anticipate no additional needs. Current 6-Click score is 19. PT is ordered and pending. Pt does not anticipate any issues with PT. CM to follow. Pt states that she was taking Coumadin @ home and gets her INR checked monthly. Pt states that she has a history of Lovenox at home. Pt was scheduled to have a Rt Total Hip Replacement with Dr. Eastman prior to admission but the abdominal wall hematoma is delaying this. Pt states that she plans to f/u with Dr. Eastman next week to determine if/when she will have the surgery. At this time, the pt denies the need for any skilled HH or OP Tx. Pt states that she feels safe with this plan and denies further questions or concerns at this time. Amber Knowles RN, CM
--- NOTE | 2024-12-14 11:44 | EX.PCM.CON.S ---
Assessment & Plan Assessment/Plan (1) Abdominal wall hematoma: PLAN: Plan Agree with current plan of care. No surgical intervention recommended at this time. Continue to hold anticoagulation and trend H&H. Discussed with patient re-applying abdominal binder, this may provide more consistent compression with position changes than sandbag; continue sandbag as tolerated as well. HPI Consult Data Date of Consult: 12/14/24 HPI Narrative HPI Narrative: HUMBERTO LONGO, is a 74 F who presented to the [facility] ER with left abdominal wall hematoma. She is chronically anticoagulated with Coumadin for paroxysmal Afib. She does also report a remote history of prior extensive LLE DVT by her report extending into her pelvic/abdominal deep veins; she is s/p IVC filter placement. She was scheduled for hip replacement yesterday. She had been on a Lovenox bridge for this surgery. She notes that after her first injection she did have a lot of bleeding but she got that to stop at home. Tuesday, she started to notice increased bruising in her abdomen then Tuesday this worsened and she noticed swelling. Both swelling and bruising continued to worsen and when she presented for her surgery yesterday she was instead sent to the ER. CTA revealed left abdominal wall subcutaneous hematoma with active extravasation. Initially, patient was planned for transfer to [place] for IR evaluation/possible intervention; after IR reviewed her images they stated not appropriate for IR intervention so she was instead kept here for monitoring. She has been seen by General Surgery with recommendations for conservative management, hold anticoagulation, sand bag for pressure, trend H&H, repeat CTA in 24 hours. She reports that she is feeling better, having less pain. She does not feel it has enlarged since she has been here. She is tolerating the sand bag well, finds it more comfortable with this. She had the abdominal binder on and this was comfortable around the hematoma, but she noticed itching in her back so removed it. Despite removing the abdominal binder, she still has back itchiness so she doesn't think this caused it. She currently denies any significant pain elsewhere. She has no other complaints. BP and HR have been stable. Hgb at presentation to ER was 9.1 then several hours later was 8.0. Early this morning Hgb was 7.5, repeat at 11 AM was 8.0. Her anticoagulation is held. [facility] Medical History Wears glasses Post-menopausal Cancer History of steroid therapy Diabetes Walker as ambulation aid Ambulates with cane Arthritis Kidney stones Anemia High cholesterol DVT (deep venous thrombosis) Easy bruising Excessive bleeding Back pain Non-smoker Shortness of breath on exertion History of edema History of echocardiogram History of stress test Hypertension Cardiology follow-up encounter History of atrial fibrillation Hx of retinal detachment Home Medications ?Medication ?Instructions ?Recorded ?Last Taken ?Type allopurinol 100 mg tablet 100 mg PO DAILY 12/05/24 12/12/24 21:00 History brimonidine 0.2 % eye drops 1 drp ophthalmic (eye) TID 12/05/24 12/13/24 12:00 History cholecalciferol (vitamin D3) 50 50 mcg PO DAILY 12/05/24 12/13/24 08:00 History mcg (2,000 unit) tablet (D3 DOTS) latanoprost 0.005 % eye drops 1 drp ophthalmic (eye) QHS 12/05/24 12/12/24 21:00 History losartan 100 mg tablet 100 mg PO DAILY 12/05/24 12/13/24 09:00 History metformin 500 mg tablet 500 mg PO DAILY 12/05/24 12/12/24 21:00 History metoprolol tartrate 25 mg tablet 25 mg PO BID 12/05/24 12/13/24 History pravastatin 40 mg tablet 40 mg PO DAILY 12/05/24 12/12/24 21:00 History warfarin 5 mg tablet 2.5 mg PO MOTH 12/05/24 12/06/24 History warfarin 5 mg tablet 5 mg PO SUTUWEFRSA 12/05/24 12/08/24 History diltiazem HCl 180 mg 180 mg PO DAILY 12/13/24 12/12/24 09:00 History capsule,extended release 24 hr, controlled (DILT-XR) enoxaparin 80 mg/0.8 mL 80 mg subcut Q12H 12/13/24 12/13/24 09:00 History subcutaneous syringe ferrous sulfate 325 mg (65 mg 325 mg PO BID 12/13/24 12/13/24 09:00 History iron) tablet (FeroSul) folic acid 800 mcg tablet 800 mcg PO DAILY 12/13/24 12/13/24 08:00 History Allergy/AdvReac Type Severity Reaction Status Date / Time cefazolin (From Ancef) Allergy Severe Itching Verified 12/13/24 13:25 codeine Allergy Severe Nausea/Vom/ Verified 12/13/24 13:25 Diarrhea hydromorphone (From Dilaudid) Allergy Severe Nausea/Vom/ Verified 12/13/24 13:25 Diarrhea meperidine (From Demerol) Allergy Severe Nausea/Vom/ Verified 12/13/24 13:25 Diarrhea metronidazole (From Flagyl) Allergy Severe Hives Verified 12/13/24 13:25 milk (dairy) Allergy Severe Diarrhea Verified 12/13/24 13:25 morphine Allergy Severe Nausea/Vom/ Verified 12/13/24 13:25 Diarrhea Surgical History Hx of toe surgery History of kidney surgery History of surgery of liver Hx of surgical procedure Hx of laparoscopy History of surgery on right wrist History of foot surgery Hx of total knee replacement Hx of hysterectomy Hx of section Hx of bilateral cataract extraction Hx of appendectomy Social History Smoking Status: Never smoker Physical Exam Const alert, oriented x3 and no apparent distress HEENT normocephalic and head/scalp atraumatic Eyes General Eye: normal appearance of both eyes Neck General: normal visual inspection Resp normal respiratory effort Effort and Inspection: able to speak in complete sentences Cardio Rate: regular rate Rhythm: regular rhythm Extremity Extremity Narrative: Bilateral pedal pulses palpable, bilateral feet appropriately warm and pink Skin Skin Narrative: LLQ abdominal wall with significant ecchymosis, skin integrity intact throughout Neuro CN's II-XII intact bilaterally Speech: speech normal Psych mental status grossly normal Appearance: grossly normal Lab / Micro Data 12/14/24 11:42 12/14/24 06:54 Labs: Laboratory Results - last 24 hr 12/13/24 11:55: Sodium 139, Potassium 4.9, Chloride 106, Carbon Dioxide 19.6 L, Anion Gap 14, BUN 24 H, Creatinine 1.44 H, Est GFR (MDRD) Non-Af 38 L, BUN/Creatinine Ratio 16.8, Glucose 127 H, Calcium 9.2 12/13/24 17:30: Hgb 8.5 L, Hct 27.2 L 12/14/24 06:54: WBC 7.4, RBC 2.66 L, Hgb 7.5 L, Hct 24.0 L, MCV 90.2, MCH 28.2, MCHC 31.3 L, RDW Std Deviation 55.9 H, RDW Coeff of Miguel A 17.2 H, Plt Count 201, MPV 11.3, Sodium 139, Potassium 4.1, Chloride 107, Carbon Dioxide 22.1, Anion Gap 10, BUN 18, Creatinine 1.33 H, Estim Creat Clear Calc 34.57 L, Est GFR (MDRD) Non-Af 41 L, BUN/Creatinine Ratio 13.6, Glucose 103 H, Calcium 8.6 Imaging Radiology Impression Abdomen/Pelvis CTA 12/13/24 15:03 IMPRESSION: Trace contrast blush in the dominant 9.2 x 5.8 by 5.7 cm left lower abdominal subcutaneous fluid collection compatible with extravasation. 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 Reading Location: [facility] Charges/Coding Visit Charges Inpatient E&M: 55093 Init Hosp L1
[2024-12-14 12:07] LABS: Hematocrit 25.2 % (37-47)
[2024-12-14 12:25] LABS: Bedside Glucose 108 mg/dL (74-106)
[2024-12-14] MEDS: Ferrous Sulfate 325 MG Tablet PO (13:58)
[2024-12-14 18:32] LABS: Bedside Glucose 110 mg/dL (74-106)
[2024-12-14] MEDS: Latanoprost 0.005% 1 Bottle 1 DRP EACH EYE (20:09)
[2024-12-14] MEDS: Pravastatin 40 MG Tablet PO (20:10)
[2024-12-14] MEDS: Metoprolol Tartrate 25 MG Tablet PO (20:10)
[2024-12-14] MEDS: Allopurinol 100 MG Tablet PO (20:12)
[2024-12-14 21:18] LABS: Bedside Glucose 144 mg/dL (74-106)
[2024-12-15] VITALS (11 sets, daily range): BP systolic 105–141; BP diastolic 51–60; PULSE 60–68; RESP 15–17; TEMP 36.6–37.2; O2SAT 94–99
[2024-12-15] MEDS: BRIMONIDINE 0.2% 5ML BOTTLE 1 DRP EACH EYE ×2 (04:44→13:49)
[2024-12-15 05:59] LABS: Absolute Lymphocyte Count 1.57 X10^3/uL (0.83-4.51); Absolute Neutrophil Count 4.3 X10^3/uL (2.0-7.7); Basophil# 0.03 X10^3/uL; Basophil% 0.4 % (0-1); Eosinophil# 0.51 X10^3/uL; Eosinophils% 6.9 % (0-5); Hematocrit 24.6 % (37-47); Hemoglobin 7.6 g/dL (12.0-15.0); Lymphocyte # 1.57 X10^3/ul (0.83-4.51); Lymphocyte % 21.3 % (19-41); Mean Corp Hgb Conc 30.9 g/dL (32-36); Mean Corpuscular Hgb 27.9 pg (27.0-32.0); Mean Corpuscular Volume 90.4 fL (81-99); Mean Platelet Vol. 11.2 fl (6.2-12.0); Monocyte# 0.92 X10^3/uL; Monocyte% 12.5 % (0-10); NRBC Flagged by Analyzer 0 % (0-5); Neutrophil # 4.33 X10^3/uL (2.7-7.7); Neutrophil % 58.8 % (47-70); Platelet Count 192 K/mm3 (150-450); RBC Distribution Width CV 17.3 % (11.6-14.6); RBC Distribution Width SD 56.6 fl (35.1-43.9); Red Blood Count 2.72 M/mm3 (4.2-5.4); White Blood Count 7.4 K/mm3 (4.4-11.0)
[2024-12-15 06:00] LABS: Bedside Glucose 108 mg/dL (74-106)
[2024-12-15 06:35] LABS: Anion Gap 11 (5-15); BUN 20 mg/dL (4-19); BUN/Creat Ratio 14.6 RATIO (10-20); Calcium,Total 8.5 mg/dL (7.6-11.0); Carbon Dioxide 21.5 mmol/L (21.0-32.0); Chloride 106 mmol/L (98-108); EST Glomerular Filtration Rate 39 (>60); Estimated Creatinine Clearance 32.85 ml/min (50-250); Glucose 113 mg/dL (70-99); Potassium 3.9 mmol/L (3.3-5.1); Sodium Level 139 mmol/L (133-145)
--- NOTE | 2024-12-15 07:39 | PN.SURG_ITS ---
Objective Data Objective Data Vital Signs: Vital Signs Temp Pulse Resp BP Pulse Ox O2 Del Method 99.0 F 68 16 141/58 H 97 Room Air 12/15/24 04:42 12/15/24 04:42 12/15/24 04:42 12/15/24 04:42 12/15/24 04:42 12/15/24 04:42 Oxygen Delivery Method Room Air Weight: 184 lb 15.485 oz Body Mass Index (BMI) 37.3 Intake & Output: Intake and Output for Last 24 Hours 12/13/24 12/14/24 12/15/24 23:59 23:59 23:59 Intake Total 700 / 700 Balance 700 / 700 Lab / Micro Data 12/15/24 05:35 12/15/24 05:35 Labs: Laboratory Results - last 24 hr 12/14/24 06:54: Sodium 139, Potassium 4.1, Chloride 107, Carbon Dioxide 22.1, Anion Gap 10, BUN 18, Creatinine 1.33 H, Estim Creat Clear Calc 34.57 L, Est GFR (MDRD) Non-Af 41 L, BUN/Creatinine Ratio 13.6, Glucose 103 H, Calcium 8.6 12/14/24 11:42: Hgb 8.0 L, Hct 25.2 L 12/14/24 12:07: POC Glucose 108 H 12/14/24 16:48: POC Glucose 110 H 12/14/24 20:00: POC Glucose 144 H 12/15/24 04:48: POC Glucose 108 H 12/15/24 05:35: WBC 7.4, RBC 2.72 L, Hgb 7.6 L, Hct 24.6 L, MCV 90.4, MCH 27.9, MCHC 30.9 L, RDW Std Deviation 56.6 H, RDW Coeff of Miguel A 17.3 H, Plt Count 192, MPV 11.2, Immature Gran % (Auto) 0.100, Neut % (Auto) 58.8, Lymph % (Auto) 21.3, [place] % (Auto) 12.5 H, Eos % (Auto) 6.9 H, Baso % (Auto) 0.4, Absolute Neuts (auto) 4.3, Absolute Lymphs (auto) 1.57, Nucleated RBC % 0, Sodium 139, Potassium 3.9, Chloride 106, Carbon Dioxide 21.5, Anion Gap 11, BUN 20 H, C reatinine 1.40 H, Estim Creat Clear Calc 32.85 L, Est GFR (MDRD) Non-Af 39 L, BUN/Creatinine Ratio 14.6, Glucose 113 H, Calcium 8.5
[2024-12-15] MEDS: Metoprolol Tartrate 25 MG Tablet PO (08:11)
[2024-12-15] MEDS: Folic Acid 1 MG Tablet PO (08:11)
[2024-12-15] MEDS: dilTIAZem CD 180 MG Capsule PO (08:11)
[2024-12-15] MEDS: Losartan Potassium 100 MG Tablet PO (08:11)
[2024-12-15] MEDS: Cholecalciferol (VIT D3) 25 MCG TABLET (1,000 UNITS) 50 MCG PO (08:11)
[2024-12-15 08:48] LABS: Hematocrit 24.2 % (37-47); Hemoglobin 7.5 g/dL (12.0-15.0)
--- NOTE | 2024-12-15 09:30 | PN.SURG_ITS ---
Subjective Subjective Patient is doing well and reports that she is tolerating a diet and having no pain. Objective Data Objective Data Vital Signs: Vital Signs Temp Pulse Resp BP Pulse Ox O2 Del Method 98.0 F 63 15 121/55 H 94 Room Air 12/15/24 08:01 12/15/24 08:11 12/15/24 08:01 12/15/24 08:01 12/15/24 08:01 12/15/24 08:01 Oxygen Delivery Method Room Air Weight: 184 lb 15.485 oz Body Mass Index (BMI) 37.3 Intake & Output: Intake and Output for Last 24 Hours 12/13/24 12/14/24 12/15/24 23:59 23:59 23:59 Intake Total 700 / 700 Balance 700 / 700 Lab / Micro Data 12/15/24 08:40 12/15/24 05:35 Labs: Laboratory Results - last 24 hr 12/13/24 12:20: Crossmatch See Detail 12/14/24 11:42: Hgb 8.0 L, Hct 25.2 L 12/14/24 12:07: POC Glucose 108 H 12/14/24 16:48: POC Glucose 110 H 12/14/24 20:00: POC Glucose 144 H 12/15/24 04:48: POC Glucose 108 H 12/15/24 05:35: WBC 7.4, RBC 2.72 L, Hgb 7.6 L, Hct 24.6 L, MCV 90.4, MCH 27.9, MCHC 30.9 L, RDW Std Deviation 56.6 H, RDW Coeff of Miguel A 17.3 H, Plt Count 192, MPV 11.2, Immature Gran % (Auto) 0.100, Neut % (Auto) 58.8, Lymph % (Auto) 21.3, [place] % (Auto) 12.5 H, Eos % (Auto) 6.9 H, Baso % (Auto) 0.4, Absolute Neuts (auto) 4.3, Absolute Lymphs (auto) 1.57, Nucleated RBC % 0, Sodium 139, Potassium 3.9, Chloride 106, Carbon Dioxide 21.5, Anion Gap 11, BUN 20 H, C reatinine 1.40 H, Estim Creat Clear Calc 32.85 L, Est GFR (MDRD) Non-Af 39 L, BUN/Creatinine Ratio 14.6, Glucose 113 H, Calcium 8.5 12/15/24 08:40: Hgb 7.5 L, Hct 24.2 L Physical Exam Const oriented x3 and no apparent distress Resp normal respiratory effort GI soft to palpation and non-tender Assessment & Plan Assessment/Plan (1) Abdominal wall hematoma: PLAN: Patient is receiving a blood transfusion today. If her hemoglobin is stable she may be discharged home later today.
--- NOTE | 2024-12-15 09:59 | DCINST_ITS ---
Discharge Instructions Diet Discharge Diet: Low fat / Low cholesterol and Carb Control Diet DC O2, CPAP, BIPAP needs Home O2 Discharge instructions: No Dressing / Incision Discharge Activity: Return to Normal Activity Dressing / Incision Call your doctor if you observe: Fever of 101 or Higher, Shortness of breath, Dizziness, Fainting spells, Swelling in the ankles, Chest pain and Increased palpitations (irregular heartbeat) Follow Up Care Test Results: Test results from this visit will be discussed in further detail at your follow- up appointment, if applicable. Discharge Plan Admission Admit Date/Time: 12/13/24 21:05 Attending Provider: Keenan Noel Primary Care Provider: Darrell Arroyo Consulting Providers: Link Graham; Shahab Mata; Db Montemayor Instructions Additional Instructions / Restrictions: Follow-up with your orthopedic surgeon to reschedule surgery. Because the indication for your anticoagulation is your A-fib and since your DVT from 20 years ago was provoked you do not meet criteria for bridging. Discharge Orders/Prescriptions Prescriptions: Continued metformin 500 mg tablet 500 mg PO DAILY pravastatin 40 mg tablet 40 mg PO DAILY allopurinol 100 mg tablet 100 mg PO DAILY losartan 100 mg tablet 100 mg PO DAILY metoprolol tartrate 25 mg tablet 25 mg PO BID cholecalciferol (vitamin D3) [D3 DOTS] 50 mcg (2,000 unit) tablet 50 mcg PO DAILY latanoprost 0.005 % drops 1 drp ophthalmic (eye) QHS brimonidine 0.2 % drops 1 drp ophthalmic (eye) TID folic acid 800 mcg tablet 800 mcg PO DAILY ferrous sulfate [FeroSul] 325 mg (65 mg iron) tablet 325 mg PO BID diltiazem HCl [DILT-XR] 180 mg capsule,ext.rel 24h degradable 180 mg PO DAILY Held warfarin 5 mg tablet 2.5 mg PO MOTH Hold Instructions: Resume on 12/19/24. Patient Comments: STOP PER DR. MOYA'S ORDERS PRE-OP warfarin 5 mg tablet 5 mg PO SUTUWEFRSA Hold Instructions: Resume on 12/19/24. Patient Comments: STOP PER DR. MOYA ORDERS PRE-OP Discontinued enoxaparin 80 mg/0.8 mL syringe 80 mg subcut Q12H Referrals / Follow Up: Darrell Arroyo MD [Primary Care Provider] - Within 1 Week Disposition Disposition (needs filled in before D/C Order can be placed): Home, Self Care
[2024-12-15] MEDS: Ferrous Sulfate 325 MG Tablet PO (11:25)
[2024-12-15 11:54] LABS: Bedside Glucose 132 mg/dL (74-106)
[2024-12-15] MEDS: Acetaminophen 325 MG Tablet 650 MG PO (12:25)
[2024-12-15 14:34] LABS: Hemoglobin 9.4 g/dL (12.0-15.0)
--- NOTE | 2024-12-15 16:01 | PCM.DC.SUM ---
Providers Date of Admission: 12/13/24 Primary Care Physician: Dr. Darrell Arroyo MD Consultations 12/13/24 22:15 Consult: General Surgery Routine Consulting Provider: Link Graham Reason for Consult: abdominal wall hematoma EMERGENT Consult: No MD Notified: Yes Date Notified: 12/13/24 Time Notified: 21:07 Method of Notification: ED Physician Initiated Consult: Vascular Surgery Routine Consulting Provider: Db Montemayor Reason for Consult: abdominal wall hematoma EMERGENT Consult: No Notified: Yes Date Notified: 12/13/24 Time Notified: 07:49 Method of Notification: Verbal Reason For Visit: ABDOMINAL WALL HEMATOMA Diagnosis Discharge Diagnosis (1) Abdominal wall hematoma: Status: Acute Code(s): S30.1XXA - Contusion of abdominal wall, initial encounter Medications at Discharge Home Medications allopurinol 100 mg tablet 100 mg PO DAILY 12/05/24 brimonidine 0.2 % eye drops 1 drp ophthalmic (eye) TID 12/05/24 cholecalciferol (vitamin D3) 50 mcg (2,000 unit) tablet (D3 DOTS) 50 mcg PO DAILY 12/05/24 latanoprost 0.005 % eye drops 1 drp ophthalmic (eye) QHS 12/05/24 losartan 100 mg tablet 100 mg PO DAILY 12/05/24 metformin 500 mg tablet 500 mg PO DAILY 12/05/24 metoprolol tartrate 25 mg tablet 25 mg PO BID 12/05/24 pravastatin 40 mg tablet 40 mg PO DAILY 12/05/24 warfarin 5 mg tablet 2.5 mg PO MOTH 12/05/24 Held on 12/15/24. Instructions: Resume on 12/19/24. warfarin 5 mg tablet 5 mg PO SUTUWEFRSA 12/05/24 Held on 12/15/24. Instructions: Resume on 12/19/24. diltiazem HCl 180 mg capsule,extended release 24 hr, controlled (DILT-XR) 180 mg PO DAILY 12/13/24 ferrous sulfate 325 mg (65 mg iron) tablet (FeroSul) 325 mg PO BID 12/13/24 folic acid 800 mcg tablet 800 mcg PO DAILY 12/13/24 Hospital Course Operations None Procedures None Summary of Care Provided Minutes Spent on Discharge: 36 Hospital Course: Per HPI: HUMBERTO SENAKE, is a 74 F who presented to [facility] ED on 12/13/2024 with worsening abdominal wall hematoma. Patient follows with Dr. Eastman with orthopedics and plan today was for right total hip replacement for incomplete right hip subcapital femur fracture. Patient has history of A-fib and remote DVT, follows with cardiology in [place]. Per cardiology recommendations patient was being bridged perioperatively from Coumadin with therapeutic Lovenox. Patient began to notice an abdominal wall hematoma about 2 days ago. However over the past 24 hours it has significantly worsened. Dr. Eastman saw her today and canceled the surgery because of this large hematoma and she was sent to the ED for further evaluation. In the ED she was normotensive and stable on room air. Noted to have hemoglobin trend from 10.1 on 12/04 to 9.1 today at noon. Repeat hemoglobin at 5:30 PM was 8.5. CTA abdomen pelvis showed a 9.2 x 5.8 x 5.7 cm left lower abdominal subcutaneous fluid collection consistent with hematoma. Initial plan was for transfer but upon speaking with interventional radiology at outside hospital, they noted that with subcutaneous bleeding there was no interventional role so request for transfer was denied. Patient was then evaluated by both general surgery and vascular surgery here at the bedside. I discussed with Dr. Graham over the phone who noted no urgent need for surgical intervention; recommended repeat CBC in the morning and repeat CTA abdomen pelvis tomorrow afternoon for further evaluation. Will be admitted under the hospital medicine service. I saw the patient at bedside in the ED. Patient was sitting back comfortably in bed, conversing normally, in no acute distress. She had been given doses of IV Zofran and fentanyl in the ED with good improvement in nausea and pain. Also had a weighted bag placed over the hematoma with improved comfort. She otherwise feels well, denies any other acute concerns at this time. Hospital Course: 1. Abdominal wall hematoma with acute blood loss anemia in the setting of chronic iron deficiency anemia due to bridging her Coumadin in preparation for orthopedic surgery?74-year-old female was scheduled to have orthopedic surgery for right total hip replacement however she was found to be anemic and had significant abdominal wall hematoma. She has a history of a provoked DVT 20 years ago as well as A-fib and so she has been bridged with Lovenox for her Coumadin which has led to this event in admission. She has been tolerating the blood loss, hemoglobin was around 7.5 this morning so she was transfused 1 unit and corrected 9.4. She is feeling much better and her Coumadin has been held as has her Lovenox. I discussed with her the possibility for discharge today and she expressed understanding of the risks and benefits of going home and would like to go home today. Will hold her Coumadin until Tuesday of this week, I discussed with her that she does not need to be bridged with her anticoagulation. I do recommend that she follow-up with her PCP in 3 to 5 days to monitor her hemoglobin. 2. Paroxysmal A-fib, essential hypertension, hyperlipidemia, acute debility secondary to left incomplete subcapital hip fracture, type 2 diabetes her chronic medical conditions which complicate her care. Her home medications were continued where appropriate. I do recommend that she follow-up with orthopedic surgery to reschedule her hip replacement, I advised her that holding her Coumadin for 3 to 5 days prior to surgery is safe without needing to be bridged. Physical Exam Narrative General: Alert, Oriented x3, Cooperative, No apparent distress HEENT: Atraumatic, PERRLA, EOMI, Normocephalic Oral: Moist Mucosa Neck: Supple, No JVD Lungs: Diminished, Normal air movement, No rhonchi, No wheeze, No rales Cardiovascular: Regular rate, Regular Rhythm, Normal S1, Normal S2, No murmurs Abdomen: Soft, Non Tender, Non-Distended, No Hepato-splenomegaly Extremities: No edema, Capillary Refill Less than 3 Seconds Skin: Left lower quadrant abdominal wall ecchymosis Musculoskeletal: No Tenderness to Palpation of Joints or Extremities Neurological: No focal neurological deficits, Motor Exam 5/5 strength throughout, Sensory exam intact to light touch and pain Psych/Mental Status: Normal Affect, Appropriate Weight / BMI Weight Weight: 184 lb 15.485 oz Body Mass Index (BMI) 37.3 ABG / Lab / Microbiology Data 12/15/24 14:14 12/15/24 05:35 Laboratory: Laboratory Results - last 24 hr 12/13/24 12:20: Crossmatch See Detail 12/14/24 16:48: POC Glucose 110 H 12/14/24 20:00: POC Glucose 144 H 12/15/24 04:48: POC Glucose 108 H 12/15/24 05:35: WBC 7.4, RBC 2.72 L, Hgb 7.6 L, Hct 24.6 L, MCV 90.4, MCH 27.9, MCHC 30.9 L, RDW Std Deviation 56.6 H, RDW Coeff of Miguel A 17.3 H, Plt Count 192, MPV 11.2, Immature Gran % (Auto) 0.100, Neut % (Auto) 58.8, Lymph % (Auto) 21.3, [place] % (Auto) 12.5 H, Eos % (Auto) 6.9 H, Baso % (Auto) 0.4, Absolute Neuts (auto) 4.3, Absolute Lymphs (auto) 1.57, Nucleated RBC % 0, Sodium 139, Potassium 3.9, Chloride 106, Carbon Dioxide 21.5, Anion Gap 11, BUN 20 H, Creatinine 1.40 H, Estim Creat Clear Calc 32.85 L, Est GFR (MDRD) Non-Af 39 L, BUN/Creatinine Ratio 14.6, Glucose 113 H, Calcium 8.5 12/15/24 08:40: Hgb 7.5 L, Hct 24.2 L 12/15/24 11:23: POC Glucose 132 H 12/15/24 14:14: Hgb 9.4 L D/C Instructions Discharge Diet: Low fat / Low cholesterol and Carb Control Diet Call your doctor if you observe: Fever of 101 or Higher, Shortness of breath, Dizziness, Fainting spells, Swelling in the ankles, Chest pain and Increased palpitations (irregular heartbeat) DC O2, CPAP, BIPAP Needs Home O2 Discharge instructions: No Meaningful Use Info Meaningful Use Meaningful Use Diagnoses (Choose all that apply): None applicable Ischemic Stroke Statin Dosing Therapy Reference: STATIN DOSE THERAPY REFERENCE: * Patients > 75 years receive moderate or high dose statin therapy. * Patients 75 years or YOUNGER should receive HIGH intensity statin dose unless contraindicated. You will be required to document reason for non-treatment if statin daily dose does not meet guidelines. HIGH DOSE STATIN THERAPY DAILY Atorvastatin > than or = to 40 mg Rosuvastatin > than or = to 20 mg Amlodipine + Atorvastatin > than or = to 2.5/40 mg Ezetimibe + Simvastatin 10/80 mg Simvastatin 80mg Discharge Plan Admission Admit Date/Time: 12/13/24 21:05 Attending Provider: Keenan Noel Primary Care Provider: Arroyo,Darrell Consulting Providers: Link Graham; Shahba Mata; Db Montemayor Instructions Additional Instructions / Restrictions: Follow-up with your orthopedic surgeon to reschedule surgery. Because the indication for your anticoagulation is your A-fib and since your DVT from 20 years ago was provoked you do not meet criteria for bridging. Discharge Orders/Prescriptions Prescriptions: Continued metformin 500 mg tablet 500 mg PO DAILY pravastatin 40 mg tablet 40 mg PO DAILY allopurinol 100 mg tablet 100 mg PO DAILY losartan 100 mg tablet 100 mg PO DAILY metoprolol tartrate 25 mg tablet 25 mg PO BID cholecalciferol (vitamin D3) [D3 DOTS] 50 mcg (2,000 unit) tablet 50 mcg PO DAILY latanoprost 0.005 % drops 1 drp ophthalmic (eye) QHS brimonidine 0.2 % drops 1 drp ophthalmic (eye) TID folic acid 800 mcg tablet 800 mcg PO DAILY ferrous sulfate [FeroSul] 325 mg (65 mg iron) tablet 325 mg PO BID diltiazem HCl [DILT-XR] 180 mg capsule,ext.rel 24h degradable 180 mg PO DAILY Held warfarin 5 mg tablet 2.5 mg PO MOTH Hold Instructions: Resume on 12/19/24. Patient Comments: STOP PER DR. EASTMAN'S ORDERS PRE-OP warfarin 5 mg tablet 5 mg PO SUTUWEFRSA Hold Instructions: Resume on 12/19/24. Patient Comments: STOP PER DR. EASTMAN ORDERS PRE-OP Discontinued enoxaparin 80 mg/0.8 mL syringe 80 mg subcut Q12H Referrals / Follow Up: Darrell Arroyo MD [Primary Care Provider] - Within 1 Week Disposition Disposition (needs filled in before D/C Order can be placed): Home, Self Care Charges/Coding Visit Charges Inpatient E&M: 06269 Disch Hosp >30min
== END 2024-12-15 16:43 | disposition home or self-care (01) | DRG 812 ==
LOC: ED 20:43 → ICU 21:57 → PCU 12-14 16:34
PROVIDERS: Emergency Medicine; Admitting Provider Hospitalist; Emergency Provider Emergency Medicine; PCP Family Medicine; Referring Provider Emergency Medicine; Visit Provider Family Medicine
DX: D62 Acute posthemorrhagic anemia (principal); D68.32 Hemorrhagic disorder due to extrinsic circulating anticoagulants; E11.9 Type 2 diabetes mellitus without complications; D50.9 Iron deficiency anemia, unspecified; I10 Essential (primary) hypertension; E78.00 Pure hypercholesterolemia, unspecified; M79.81 Nontraumatic hematoma of soft tissue; Z90.710 Acquired absence of both cervix and uterus; Z79.01 Long term (current) use of anticoagulants; Z79.02 Long term (current) use of antithrombotics/antiplatelets; Z79.899 Other long term (current) drug therapy; Z79.84 Long term (current) use of oral hypoglycemic drugs; Z86.718 Personal history of other venous thrombosis and embolism; Z96.659 Presence of unspecified artificial knee joint; Z90.49 Acquired absence of other specified parts of digestive tract; Z98.890 Other specified postprocedural states; R53.81 Other malaise; S72.012D Unspecified intracapsular fracture of left femur, subsequent encounter for closed fracture with routine healing; X58.XXXD Exposure to other specified factors, subsequent encounter
CPT/HCPCS: 36415; 74174; 80048; 82962; 85014; 85018; 85025; 85027; 93005; 94668; 99284; P9016; Q9967; A4216; J2405

== ENCOUNTER 2025-04-17 12:21 | Outpatient (RCR) | payer MEDICARE, SELFPAY ==
--- NOTE | 2025-04-17 13:30 | HP.OTEVAL ---
Patient's Visit Information Visit Information Visit Information: HUMBERTO LONGO is a 74 year old F, referred to Occupational Therapy by SABA MACIEL, with a diagnosis of BLE Lymphedema. Date of Evaluation: 04/17/25 Occupational Therapist: Skylar Brown Subjective Subjective: This 74 year old female arrives with dx of BLE lymphedema. Pt states swelling started a couple of months ago with RLE worse than L. Pt did have knee surgery Jun [id number]. Pt has already tried compression garments with 15 compression value however has not impacted swelling that she has noted states she wear them all day long takes them off at night. Pt enjoys going for walks however has recently been unable due to now using AD and back pain. Pt has been taking water pill for approx 2 months does think it is helping a little bit. skin appears to be dried and cracked at ankles Objective Objective/Observation: pt arrives using cane as means of mobility to OT section compression garments on ankle skin dry and cracked Lymphedema (Circumferential Measure) Mid-foot: L 23.5cm R 22.5 cm Ankle: L 24 cm R 25.5 cm Lower calf: L 29.5 cm R 31 cm Largest calf: L 42.5 cm R 41.5 cm Below knee: L 42 cm R 41 cm Above knee: L 52.5 cm R 49.5 cm Mid-thigh: L56.5 cm R 51 cm Goals Goal: Patient will demonstrate a 20% reduction in edema by discharge: Yes Goal: Patient will demonstrate adequate knowledge of self-massage by the end of the second week.: Yes Goal: Patient will demonstrate adequate knowledge of skin care and precautions by the end of the first week.: Yes Goal: Patient will demonstrate adequate knowledge of therapeutic exercises by discharge.: Yes Goal: Patient will select an appropriate compression garment and demonstrate adequate knowledge of correct donning technique, care and wearing schedule by discharge.: Yes Goal: Patient will voice understanding of need to replace compression garment every four to six months by discharge.: Yes Rehabilitation General Assessment: This 74 year old female arrives with dx of BLE lymphedema. pt presents with swelling of BLE indicating need for OT training in lymphedema precautions proper skin care compression garments LE exercise as well as proper massage for reduction. pt would benefit from 3-4 session in a 3 month span to address the above concerns. Rehabilitation Potential: Good Anticipated Interventions Anticipated Interventions: Education re Diagnosis, Manual Lymph Drainage, Education re Life-long lymphedema Management, Education re Skin Care and Precautions, Education re Self Massage Techniques, Education re Correct Donning Tech,Care&Wearing Sched Comp Garments and Home Program Visit Plan Frequency: 3-4 sessions Duration: 3 Months General Plan: self massage compression garments LE exercise TEXT: Thank you for the opportunity to evaluate your patient. For Medicare and Medicare HMO plans, please review the plan of care and approve it. It will need to be FAXED BACK to us at [phone] for Medicare purposes. Please let me know if there are questions or concerns regarding this plan of care. Physician Signature: Date:
--- NOTE | 2025-08-06 08:23 | HP.OT.NRP ---
Patient Information Patient Information: HUMBERTO LONGO was seen in my office for initial evaluation on 04/17/25. The following Plan of Care was established for this patient: POC Established Initial Frequency: 3-4 sessions Initial Duration: 3 Months Anticipated Interventions Anticipated Interventions: Education re Diagnosis, Manual Lymph Drainage, Education re Life-long lymphedema Management, Education re Skin Care and Precautions, Education re Self Massage Techniques, Education re Correct Donning Tech,Care&Wearing Sched Comp Garments and Home Program Last Seen Last Seen: This patient was last seen in our office 04/17/25. Pertinent comments regarding their Occupational therapy will appear below: This 75 year old female seen by OT with dx of BLE lymphedema. Pt seen for evaluation only with no additional visits scheduled. discharge from OT caseload due to lapse in time since services. At this point I will be discontinuing this patient from occupational therapy. I would be happy to see this patient again in the future if found appropriate by the physician. Thank you! Skylar Brown
== END 2025-04-17 19:00 | disposition home or self-care (01) ==
LOC: OT 12:21
PROVIDERS: PCP Family Medicine
DX: I89.0 Lymphedema, not elsewhere classified (principal)
CPT/HCPCS: 97165; 97530

== ENCOUNTER → 2025-05-20 | Day surgery (SDC) | payer MEDICARE, SELFPAY ==
[2024-12-04 14:59] LABS: Hematocrit 33.3 % (37-47); Hemoglobin 10.1 g/dL (12.0-15.0); Mean Corp Hgb Conc 30.3 g/dL (32-36); Mean Corpuscular Volume 90.7 fL (81-99); Mean Platelet Vol. 11.8 fl (6.2-12.0); Platelet Count 273 K/mm3 (150-450); RBC Distribution Width CV 17.1 % (11.6-14.6); RBC Distribution Width SD 56.4 fl (35.1-43.9); Red Blood Count 3.67 M/mm3 (4.2-5.4); White Blood Count 7.1 K/mm3 (4.4-11.0)
[2024-12-04 15:07] LABS: Partial Thromboplast Time 36.0 Seconds (24.1-36.2); Prothrombin Time (Protime)PT. 34.3 SECONDS (11.7-14.9)
--- NOTE | 2024-12-05 22:14 | PCM.HP.BLA ---
History and Physical History and Physical Surgical procedure: Direct anterior right total hip arthroplasty secondary to subcapital femoral neck fracture Surgeon: Dr. Jefe Eastman Procedure Date:? December 13, 2024 Subjective? HPI: Right hip pain. Dictating on a patient of Dr. Jefe Eastman.? This is a 74-year-old female who is been having ongoing right hip pain since August 2024.? Patient was seen by Dr. Jefe Eastman on November 16, 2024.? MRI was ordered at that time.? She is here for MRI results.? Patient's pain can reach 8/10.? She has primarily been using Tylenol and does not like to take narcotics.? She is complaining of right hip pain involving the groin and anterior thigh.? She gets some lateral hip pain.? Pain is more severe when up and weightbearing.? She denies any numbness and tingling.? She has been using a walker and has been offsetting the weight on her right lower extremity.? Patient received a corticosteroid injection on September 25, 2024 which only gave to-3 days relief.? She also went through a 10 day prednisone course which only temporarily helped.? Her pain began in August.? She was in formal physical therapy for a previous left total knee arthroplasty that took place on June 25, 2025.? This procedure was done by Dr. Gomez.? Patient denies any postoperative complications after the knee replacement.? She went through normal physical therapy. She has pain with walking and trying to go up and down steps.? She has difficulty with activities of daily living including bathing and showering.? Has difficulty putting on her socks and shoes.? She has difficulty with sleep secondary to the pain.? Patient states she has feelings of the right leg being longer than the left.? Patient has medical history pertinent for atrial fibrillation which she is currently on Coumadin, history of previous DVT in 2009, type 2 diabetes mellitus, gout, osteoporosis, history of kidney cancer in remission, hypertension, hypercholesterolemia, vitamin D deficiency, and osteogenesis imperfecta.? She denies any recent chest pain or shortness of breath.? She is followed by her loss control engineer Dr. Layne out of [facility].? Primary care physician is Dr. Brandon Arroyo.? Patient does report a remote history of fracture in the lumbar spine in 1996 but denies any back pain or surgery today. Current Meds: Losartan Potassium 100 mg 1 by mouth every day, Coumadin? 25 MG? one daily, Metformin HCL 500 mg 1 po qdaily, Vitamin D 50 mcg (1999) 1 by mouth 5 days a week, Pravastatin Sodium 40 mg 1 by mouth every day, Allopurinol 100 mg 1 by mouth every day, Latanoprost 0.005 % daily, Diltiazem HCL ER 180 mg daily, Brimonidine Tartrate 0.2 % 2 x a day, Tylenol Extra Strength 500 mg takes 1 tablet in the morning and 2 tablets right before bed Allergies: Ancef - nausea and itching, Zofran - shakes, Flagyl - nausea, Codeine - rash/nausea, Demerol - nausea, Morphine - nausea Advance Care Plan: No Advance Directives Effective Date: 11/16/2024 Past Medical History: Medical Problems: AFib, Arthritis Cancer - Kidney - in remission Diabetes, Gout History Of Blood Clots/ DVT - left leg - roughly around 2009 High Blood Pressure, Hypercholesterolemia, vitamin D deficiency, Osteogenesis Imperfecta Accidents: Fracture - arms, foot back 1978 and 1996 Surgical Hx: Appendectomy, Cataracts, Section, Hysterectomy retina - (2020) Knee Replacement LT foot fusion - bilateral feet Anesthesia Complications: Anesthesia Complications - nausea Assistive Devices: Glasses, Cane, Walker Reviewed and updated. Family History: Cancer, Diabetes, Heart Disease, High Blood Pressure. Children:2 Reviewed and updated. Social History: Marital: .Occupation: Retired.Work Status: Retired.Hand Dominance: Right-handed. Personal Habits:? Cigarette Use: Never Smoked Cigarettes.Smokeless Tobacco: Never Used Smokeless Tobacco.E-Cigarette Use: Never used.Alcohol: Denies use.Drug Use: Denies Use.Enjoy Exercising: Exercises 1-3 x/month. Reviewed and updated - 11/26/2024 at 1:25 pm by Dinora Ogden BMI outside normal limits? YES? NO Patient was counseled and given education for nutritional guidance today or during this calendar year YES? NO? N/A d/t pt unable to stand, in hospice, or under the age of 18 Date: 11/26/2024 Was the patient queried about smoking behavior? Yes? No Does the patient currently smoke? Tobacco Use: Patient has never smoked. Was the patient counseled about tobacco cessation??? Yes? No Review Of Systems: Constitutional: Denies change in appetite, fever and weight change. Cardiovasular: Denies chest pain, heart murmur and irregular heartbeat. Respiratory: Denies cough, pneumonia, shortness of breath, tuberculosis and wheezing. Gastrointestinal: Denies constipation, diarrhea, heartburn, nausea, rectal itching, bloody stools and vomiting. Musculoskeletal: Reports leg swelling, pain, trouble walking and weakness. Skin: Denies Raynaud's, history of shingles and tattoo. Neurological: Denies ambulatory dysfunction, dizziness, numbness/tingling and tremor. Psychiatric: Denies anxiety, insomnia and stress. Hematologic/Lymphatic: Denies anemia, bleeding/bruising tendency and past transfusion. Reviewed, no changes. Objective? Ht: 58 4'10 Wt: 187lb Wt Prior: 188lb as of 11/16/24 Wt Dif: -1lb Wt k.823 Wt kg Prior: 85.277 as of 11/16/24 Wt kg Dif: -0.454 BMI: 39.1 BP: 128/80 Pulse: 50 Resp: 16 T: 97.3 tympanically T: 36.3C Pain Level: 8 O2SatR: 98 General appearance:NORMAL? Other: Eyes: Conjunctivae and lids: NORMAL? Pupils: ERR Ears, Nose, Mouth, and Throat: NORMAL? Other: Inspection of lips, teeth and gums: NORMAL?? Other: Neck: Examination of neck: no masses noted. Respiratory: Assessment of respiratory effort: NORMAL?? Other: ? Auscultation of lungs: clear to auscultation no wheezes, rhonchi or rales. Cardiovascular:? Auscultation of heart: regular rate and rhythm, no murmurs, gallops or rubs. Exam: Const: Alert and oriented x 3. Skin: Skin is warm, dry and intact. Neuro: Sensation grossly intact to light touch. Neurological and vascular function intact. Patient ambulating with use of walker offsetting weight on the right lower extremity.? Patient does have larger pannus but there is no skin irritation in the skin fold.? She has tenderness to palpation over the lateral hip at the greater trochanteric region and right thigh. Range of motion: Due to hip fracture range of motion was deferred today.? Previous exam by Dr. Jefe Eastman patient had 20 flexion contracture, flexion to 80, internal rotation to neutral, external rotation 35. Sensation intact to light touch to bilateral lower extremities. Dx Studies: ?Previous x-rays of the right hip were reviewed from November 16, 2024 revealed no appreciable fracture.? There is difficulty with visualization and poor quality of the images due to large abdomen and pannus affecting penetration.? Joint space appeared well maintained.? No lytic or blastic lesions.? With regards to lesser trochanters bilaterally hips appear to be equal. Previous MRI from [facility] on November 23, 2024 of the right hip revealed an incomplete right hip subcapital femoral fracture with surrounding marrow edema.? No displacement.? There is hip joint effusion.? There is moderate cartilage loss with osteophyte in bilateral hips.? Subchondral cyst formation in the left acetabulum.? Mild muscle edema in the right obturator musculature likely reactive with severe atrophy of the right hip abductors and moderate atrophy of the left hip abductors.? For complete details see MRI results.? MRI was discussed with Dr. Jefe Eastman. ? Assessment #1: Hx S72.011A Unspecified intracapsular fracture of right femur, initial encounter for closed fracture Care Plan:? Assessment #2: Hx M16.11 Unilateral primary osteoarthritis, right hip Care Plan:? Assessment #3: Hx M25.551 Pain in right hip Care Plan:? Assessment #4: Hx I10 Essential (primary) hypertension Care Plan:? Recommendations:? Patient was explained that poorly controlled elevated blood pressure, hypertension, can lead to damage to the heart, brain, kidneys, and or eyes.? Hypertension can also damage arteries decreasing blood flow to the extremities, leading to delayed fracture healing and or recovery from tendon or ligament injuries.? Importance of proper blood pressure control and monitoring explained.? Recommended follow-up with their primary care physician as needed.? Blood pressure goal is less than 120/80. Blood pressure medication should be taken routinely including the morning of surgery unless otherwise instructed by their physician.? Patient's with hypertension are at increased risk of using anti-inflammatory medication such as Motrin or Aleve increasing the risk of heart attack or strokes. ? Assessment #5: Hx I48.91 Unspecified atrial fibrillation Care Plan:? 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 Assessment #7: Hx Z86.718 Personal history of other venous thrombosis and embolism Care Plan:? Assessment #8: Hx E66.9 Obesity, unspecified Care Plan:? Recommendations:? Patient was explained their obesity, elevated body mass index greater than 30 is a cause of many health problems such as heart disease, strokes, type 2 diabetes, and certain types of cancer that are some of the leading causes of? preventable premature .? Obesity also is a independent complication for surgery increasing risk of postoperative infections, wound healing complication, and in general less optimal outcomes.? Also obesity increases risk of osteoarthritis causing joint pain and osteoporosis increasing risk of fractures.? ? Assessment #9: Hx Z71.3 Dietary counseling and surveillance Care Plan:? Assessment #10: Hx Z68.39 Body mass index [BMI] 39.0-39.9, adult Care Plan:? Recommendations:? BMI results were discussed with patient.? Patient given options for nutritional counseling. ? Impression: 1.? Right hip nondisplaced subcapital femoral neck fracture 2.? Right hip osteoarthritis 3.? Right hip pain 4.? Hypertension 5.? Paroxysmal atrial fibrillation: Currently on Coumadin 6.? Type 2 diabetes mellitus: A1c currently 7.2 7.? History of DVT 8.? Osteogenesis imperfecta 9.? History of gout 10.? Hypercholesterolemia 11.? Osteoporosis 12.? Vitamin D deficiency 13.? History of kidney cancer in remission 14.? Obesity with BMI 39.1 15. Pre-operative Anemia Plan: I did discuss case was Dr. Jefe Eastman.? Patient was found to have a nondisplaced right hip subcapital hip fracture on MRI.? She has had ongoing pain since August without any trauma or injury.? Patient has stress reaction throughout the bone with no displacement.? Patient began having the pain in August after she went through therapy for total knee arthroplasty on the left in May 2024.? She has no complaints with the left knee.? She has been having difficulty with activities of daily living including housework, getting dressed, hygiene purposes, showering.? She has been limiting her weight on the right lower extremity with use of a walker.? She continues to have groin pain.? With the MRI finding a nondisplaced subcapital hip fracture and osteoarthritis case was discussed with Dr. Jefe Eastman in which we feel moving forward with a total hip arthroplasty would be her best benefit.? We would like to expedite this but patient will need to be appropriately optimized.? She has been dealing and managing with this pain for 3 months.? There is no displacement of the fracture.? At this time I would like her to offset the weight on the right lower extremity and try to toe-touch the best she can.? She has been using extra strength Tylenol for pain control.? Patient states she did not tolerate the oxycodone after the total knee replacement.? She has tolerated tramadol in the past.? At this time patient was able to watch the educational video for total hip replacement.? All questions were answered. I did discuss and review with the patient all treatment options including surgical versus nonsurgical options.? I will continue plan established by Dr. Jefe Eastman.? Patient does wish to proceed with the above-stated procedure.? Potential risks, benefits, and complications of the procedure were discussed in detail including but not limited to , infection, nerve and blood vessel damage, persistent pain, numbness, tingling, paresthesias, blood clot, pulmonary embolism, hip dislocation, and requirement for possible further surgery.? The patient expressed full understanding and has no further questions for the provider.? Patient does agree to proceed with the above-stated procedure and has signed the surgery consent form.? Patient will meet with the cable engineer outside plant to determine appropriate date.? We will try and get patient in in the next 3 weeks so that we can appropriately optimized patient before the surgery. We will be having patient getting clearance from her loss control engineer Dr. Layne and primary care provider Dr. Brandon Arroyo.? We will need recommendations from the primary care physician for perioperative management of her Coumadin.? Patient does report they wanted her to bridge after stopping the Coumadin prior to her total knee replacement.? We will need to undergo preoperative lab work and EKG.? Orders will be placed in chart.? She will require preoperative testing at the hospital. Patient's medical history and review of systems reviewed and documented in detail at today's visit.? Patient will require preoperative labs and EKG as well as clearances.? Also discussed with the patient postoperative course of treatment for procedures including dental work and colonoscopies in which patient will require antibiotic treatment prior to these procedures.? Postoperative course of treatment with regards to a direct anterior total hip arthroplasty was discussed in great detail.? All questions were answered with the patient and family member.? The patient is in agreement with treatment plan. I discussed with the patient postoperative use of pain medications including narcotics.? We discussed potential risks for addiction and appropriate use.? I advise patient starting with the lowest dose possible and advancing as needed.? We discussed postoperative course of treatment with pain management.? We will continue to monitor patient throughout this course and wean off narcotics as appropriate.? Postoperative course of treatment was discussed in great detail.? I did advise the patient that it can take a full year for full recovery.? Recommend continuing strengthening exercises when finished with physical therapy.? Also discussed future dental appointments and requirement of antibiotic.? Recommended no routine dental care for 3 months following surgery.? Patient will only see the dentist if there is concern for any underlying infection.? Also discussed the risk of postoperative constipation and to continue stool softener as prescribed.? If no doubt movement after day 3 postoperatively they are to contact our office for further recommendations.? Voiced understanding and agreement with treatment plan. POST-OP MEDICATION PLAN: Pain Medications: Postoperative pain regimen will be initiated by Dr. Jefe Eastman in the hospital.? We will use extra strength Tylenol and tramadol for pain control.? Patient is unable to use nonsteroidal anti-inflammatories due to her anticoagulation.? Patient will be placed on Doxycycline for 2 weeks post-operatively as her A1c is currently 7.2.? She was also started on ferrous sulfate and folic acid due to findings of pre-operative anemia.? Patient will need likely follow up post-op with PCP for continued management.? DVT Prophylaxis Plan: We are requesting perioperative recommendations for her Coumadin prior to surgery.? Patient is aware that if any bridging is required this will be managed by her primary care physician.? She voiced understanding.? Coumadin will be resumed post-operatively on day #1.? This dictation was created using voice recognition software. Phonetic and/or grammatical errors may exist.
--- NOTE | 2024-12-06 15:34 | PAT.ANESEVAL ---
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 When Was Last Pacemaker Check QUESTION #4 FULL TEXT: You/Your Family Experience fever (hyperthermia) with Anesthesia Last Oral Intake Last Oral intake: Last Oral Intake NPO since Meds taken in AM with sips of water? Meds patient instructed to take am of surgery PONV PONV - jewelry appraiser: PONV - jewelry appraiser Female Yes 12/05/24 14:30 HX of Motion Sickness Yes 12/05/24 14:30 HX of N/V After Surgery Yes 12/05/24 14:30 Non-Smoker Yes 12/05/24 14:30 Duration of Surgery greater Yes 12/05/24 14:30 than 60 minutes Number of Risk Factors 5 12/05/24 14:30 PONV Score Severe Risk 12/05/24 14:30 Respiratory Assessment Respiratory Assessment - jewelry appraiser: Respiratory Tract Infection Hx - jewelry appraiser Hx Respiratory Tract Infection No 12/05/24 14:30 STOP Sleep Apnea STOP Sleep Apnea - jewelry appraiser: STOP Sleep Apnea - jewelry appraiser Hx Hypertension Yes: CONTROLLED ON MED 12/05/24 14:30 Hx Sleep Apnea No 12/05/24 14:30 CPAP BIPAP Do you snore loudly (louder No 12/05/24 14:30 than talking or can be heard Do you often feel tired/ No 12/05/24 14:30 fatigued/ sleepy during daytime? Has anyone observed you stop No 12/05/24 14:30 breathing during sleep? STOP Results Negative 12/05/24 14:30 QUESTION #5 FULL TEXT : Do you snore loudly (louder than talking or can be heard through closed doors)? Tobacco Use History Tobacco Use History - jewelry appraiser: Tobacco Use History - jewelry appraiser Tobacco Use Smoking Status Never smoker 12/05/24 14:30 Hx Tobacco Use No 12/05/24 14:30 Years Smoking Packs Smoked per Day Smoking Cessation Date was within the last 15 years Hx Smoking Cessation Date Hx Smoking Cessation Counseling Hematologic Medial History Hematologic Hx - jewelry appraiser: Hematologic Medical Hx - system engineer Hx of Blood Transfusion No 12/05/24 14:30 Hx of Transfusion in last 3 No 12/05/24 14:30 Months Date of Last Transfusion (if within last 3 months) Ever experience any problems No 12/05/24 14:30 with transfusion(s)? Specify any problems Hx of Preganancy in last 3 No 12/05/24 14:30 Months Nurse Filling Out Transfusion VCHRISTIN 12/05/24 14:30 & Questions: Date: 12/05/24 12/05/24 14:30 Time: 14:32 12/05/24 14:30 Patient unable to answer at this time (ie. confused, unrespo /Reproduction History /Reproductive History - jewelry appraiser: /Reproductive Hx- jewelry appraiser Hx Now No 12/05/24 14:30 Gestational Age (in weeks): EDC: Hx Hx Para Hx Section SAB No 12/05/24 14:30 PFSH Medical History (Updated 12/05/24 @ 14:30 by Sofy Wallace) Wears glasses Post-menopausal Cancer History of steroid therapy Diabetes Walker as ambulation aid Ambulates with cane Arthritis Kidney stones Anemia High cholesterol DVT (deep venous thrombosis) Easy bruising Excessive bleeding Back pain Non-smoker Shortness of breath on exertion History of edema History of echocardiogram History of stress test Hypertension Cardiology follow-up encounter History of atrial fibrillation Hx of retinal detachment Home Medications ?Medication ?Instructions ?Recorded ?Last Taken ?Type allopurinol 100 mg tablet 100 mg PO DAILY 12/05/24 Unknown History brimonidine 0.2 % eye drops 1 drp ophthalmic (eye) TID 12/05/24 Unknown History cholecalciferol (vitamin D3) 50 50 mcg PO DAILY 12/05/24 Unknown History mcg (2,000 unit) tablet (D3 DOTS) latanoprost 0.005 % eye drops 1 drp ophthalmic (eye) QHS 12/05/24 Unknown History losartan 100 mg tablet 100 mg PO DAILY 12/05/24 Unknown History metformin 500 mg tablet 500 mg PO DAILY 12/05/24 Unknown History metoprolol tartrate 25 mg tablet 25 mg PO BID 12/05/24 Unknown History pravastatin 40 mg tablet 40 mg PO DAILY 12/05/24 Unknown History warfarin 5 mg tablet 2.5 mg PO MOTH 12/05/24 Unknown History warfarin 5 mg tablet 5 mg PO SUTUWEFRSA 12/05/24 Unknown History Allergy/AdvReac Type Severity Reaction Status Date / Time cefazolin (From Ancef) Allergy Severe Itching Verified 12/05/24 14:10 codeine Allergy Severe Nausea/Vom/ Verified 12/05/24 14:10 Diarrhea hydromorphone (From Dilaudid) Allergy Severe Nausea/Vom/ Verified 12/05/24 14:10 Diarrhea meperidine (From Demerol) Allergy Severe Nausea/Vom/ Verified 12/05/24 14:10 Diarrhea metronidazole (From Flagyl) Allergy Severe Hives Verified 12/05/24 14:10 milk (dairy) Allergy Severe Diarrhea Verified 12/05/24 14:10 morphine Allergy Severe Nausea/Vom/ Verified 12/05/24 14:10 Diarrhea ondansetron (From Zofran) Allergy Severe Itching Verified 12/05/24 14:10 Surgical History (Updated 12/05/24 @ 14:30 by Sofy Wallace) Hx of toe surgery History of kidney surgery History of surgery of liver Hx of surgical procedure Hx of laparoscopy History of surgery on right wrist History of foot surgery Hx of total knee replacement Hx of hysterectomy Hx of section Hx of bilateral cataract extraction Hx of appendectomy Social History Smoking Status: Never smoker Audit: Pertinent Findings Pertinent Findings Consult pertinent findings: May 22, [address]24. Dr. Layne. 1. Atrial fibrillation-low cardiac risk. For anticoagulation. Increased risk for stroke. May stop Coumadin or Xarelto 3 days prior to procedure and restart when okay with surgeon. Longer intervals if necessary for neuraxial anesthesia. Recommendation Anesthesia Recommendation Anesthesia recommendation: OPTIMIZED for anesthesia
--- NOTE | 2024-12-12 15:56 | NURSING ---
pt had called in with concerns about hematoma are on abd from giving lovenox injection to herself- she had [facility] the [facility] and left a message with dr bello's office- discused concerns and inform her that we would call dr rascon office as well to let them know. edward lyle in [facility] called dr bello's office and left message with angelina and she was going to message dr bello and call the pt. this nurse just followed up with the pt- informed her of what was done and that dr bello's office would call her. she voices understanding.
--- NOTE | 2024-12-13 11:16 | PCM.PRE.AN2 ---
ASA Classification* ASA Classification ASA Classification: 3 Assessment & Plan Anesthesia* Anesthesia Assessment Anesthesia Assessment: Discussed sedation and/or anesthesia options, risks, benefits, and alternatives with patient/parents/legal guardian/POA. Questions invited. The patient/parents/legal guardian/POA seems to understand and agrees to proceed with anesthesia plan. Reviewed the physical assessment, medical history, allergy history and patient home medications list prior to surgery/procedure/anesthetic and documented any changes. Performed airway and anesthesia risk assessments. Procedural Plan Procedural Plan:: Surgeon canceled surgery Anesthesia Type Anesthesia Type: General (General LMA as a backup plan.) and Spinal (Patient is INR is 1.4 and is too high for a spinal. Patient will be general anesthetic for surgery.) History Source History Obtained from:: Patient and Chart Anesthesia Focused Assessment* Oxygen Delivery Method: Room Air Airway Assessment Mouth opens: >3 cm Mallampati Score: I Teeth Condition: Caps/Crowns (Patient has several caps. They are all tight.) Neck Range of motion (ROM): Full ROM Focused Labs Anesthesia Preop lab: CBC WBC 9.2 K/mm3 (4.4-11.0) 12/13/24 11:55 12/13/24 RBC 3.23 M/mm3 (4.2-5.4) L 12/13/24 11:55 12/13/24 Hgb 8.5 g/dL (12.0-15.0) L 12/13/24 17:30 12/13/24 Hct 27.2 % (37-47) L 12/13/24 17:30 12/13/24 Plt Count 220 K/mm3 (150-450) 12/13/24 11:55 12/13/24 CHEMISTRY Potassium 4.9 mmol/L (3.3-5.1) 12/13/24 11:55 12/13/24 Sodium 139 mmol/L (133-145) 12/13/24 11:55 12/13/24 Magnesium 2.0 mg/dL (1.5-2.2) 12/13/24 11:55 12/13/24 BUN 24 mg/dL (4-19) H 12/13/24 11:55 12/13/24 Creatinine 1.44 mg/dL (0.70-1.20) H 12/13/24 11:55 12/13/24 Glucose 127 mg/dL (70-99) H 12/13/24 11:55 12/13/24 POC Glucose 131 mg/dL (74-106) H 12/13/24 12:26 12/13/24 COAG PT 17.9 SECONDS (11.7-14.9) H 12/13/24 12:10 12/13/24 Pre-Assessment Diagnosis/Proposed Procedure Planned Operative Procedure(s): (R) (XRAY) ANTERIOR RIGHT TOTAL HIP ARTHROPLASTY, ERAS Anesthesia History 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 When Was Last Pacemaker Check QUESTION #4 FULL TEXT: You/Your Family Experience fever (hyperthermia) with Anesthesia Last Oral Intake Last Oral intake: Last Oral Intake NPO since Meds taken in AM with sips of water? Meds patient instructed to take am of surgery PONV PONV - cold food packer: PONV - cold food packer Female Yes 12/05/24 14:30 HX of Motion Sickness Yes 12/05/24 14:30 HX of N/V After Surgery Yes 12/05/24 14:30 Non-Smoker Yes 12/05/24 14:30 Duration of Surgery greater Yes 12/05/24 14:30 than 60 minutes Number of Risk Factors 5 12/05/24 14:30 PONV Score Severe Risk 12/05/24 14:30 Respiratory Assessment Respiratory Assessment - cold food packer: Respiratory Tract Infection Hx - cold food packer Hx Respiratory Tract Infection No 12/05/24 14:30 STOP Sleep Apnea STOP Sleep Apnea - cold food packer: STOP Sleep Apnea - cold food packer Hx Hypertension Yes: CONTROLLED ON MED 12/05/24 14:30 Hx Sleep Apnea No 12/05/24 14:30 CPAP BIPAP Do you snore loudly (louder No 12/05/24 14:30 than talking or can be heard Do you often feel tired/ No 12/05/24 14:30 fatigued/ sleepy during daytime? Has anyone observed you stop No 12/05/24 14:30 breathing during sleep? STOP Results Negative 12/05/24 14:30 QUESTION #5 FULL TEXT : Do you snore loudly (louder than talking or can be heard through closed doors)? 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 Specify any problems Hx of Preganancy in last 3 No 12/05/24 14:30 Months Nurse Filling Out Transfusion VCHRISTIN 12/05/24 14:30 & Questions: Date: 12/05/24 12/05/24 14:30 Time: 14:32 12/05/24 14:30 Patient unable to answer at this time (ie. confused, unrespo /Reproduction History /Reproductive History - cold food packer: /Reproductive Hx- cold food packer Hx Now No 12/05/24 14:30 Gestational Age (in weeks): EDC: Hx Hx Para Hx Section SAB No 12/05/24 14:30 Active Medications Active Medications: Current Medications Generic Name Dose Route Start Last Admin Trade Name Freq PRN Reason Stop Dose Admin Acetaminophen 1,000 mg 12/13/24 13:00 Acetaminophen 500 Mg Tablet PO 12/13/24 13:01 X1 ONE Tranexamic Acid 2,000 mg/ 0 mg 12/13/24 13:00 Sodium Chloride 100 ml OPERA.SITE 12/13/24 13:01 X1 ONE Sodium Chloride 77.4 ml/ 0 ml 12/13/24 13:00 Ropivacaine 200 mg/ OPERA.SITE 12/13/24 13:01 Epinephrine HCl 0.6 mg/ X1 ONE Ketorolac Tromethamine 30 mg/ Morphine Sulfate 5 mg Gabapentin 600 mg 12/13/24 13:00 Gabapentin 600 Mg Tablet PO 12/13/24 13:01 X1 ONE Lactated Ringer's 1,000 mls @ 999 mls/hr 12/13/24 13:00 IV 12/13/24 14:00 .Q1H1M SINCERE Cefazolin Sodium 2 gm/ N/A 20 mls @ 400 mls/hr 12/13/24 13:00 IV 12/13/24 13:02 PREOP ONE Insulin Human Lispro 1 - 6 unit 12/13/24 13:00 Insulin Lispro 100 Unit/Ml Insuln.Pen SC 12/13/24 19:00 Q4H PRN PRN BG>/= 180, SEE PROTOCOL Protocol PFSH Medical History Wears glasses Post-menopausal Cancer History of steroid therapy Diabetes Walker as ambulation aid Ambulates with cane Arthritis Kidney stones Anemia High cholesterol DVT (deep venous thrombosis) Easy bruising Excessive bleeding Back pain Non-smoker Shortness of breath on exertion History of edema History of echocardiogram History of stress test Hypertension Cardiology follow-up encounter History of atrial fibrillation Hx of retinal detachment Home Medications ?Medication ?Instructions ?Recorded ?Last Taken ?Type allopurinol 100 mg tablet 100 mg PO DAILY 12/05/24 12/12/24 21:00 History brimonidine 0.2 % eye drops 1 drp ophthalmic (eye) TID 12/05/24 12/13/24 12:00 History cholecalciferol (vitamin D3) 50 50 mcg PO DAILY 12/05/24 12/13/24 08:00 History mcg (2,000 unit) tablet (D3 DOTS) latanoprost 0.005 % eye drops 1 drp ophthalmic (eye) QHS 12/05/24 12/12/24 21:00 History losartan 100 mg tablet 100 mg PO DAILY 12/05/24 12/13/24 09:00 History metformin 500 mg tablet 500 mg PO DAILY 12/05/24 12/12/24 21:00 History metoprolol tartrate 25 mg tablet 25 mg PO BID 12/05/24 12/13/24 History pravastatin 40 mg tablet 40 mg PO DAILY 12/05/24 12/12/24 21:00 History warfarin 5 mg tablet 2.5 mg PO MOTH 12/05/24 12/06/24 History warfarin 5 mg tablet 5 mg PO SUTUWEFRSA 12/05/24 12/08/24 History diltiazem HCl 180 mg 180 mg PO DAILY 12/13/24 12/12/24 09:00 History capsule,extended release 24 hr, controlled (DILT-XR) enoxaparin 80 mg/0.8 mL 80 mg subcut Q12H 12/13/24 12/13/24 09:00 History subcutaneous syringe ferrous sulfate 325 mg (65 mg 325 mg PO BID 12/13/24 12/13/24 09:00 History iron) tablet (FeroSul) folic acid 800 mcg tablet 800 mcg PO DAILY 12/13/24 12/13/24 08:00 History Allergy/AdvReac Type Severity Reaction Status Date / Time cefazolin (From Ancef) Allergy Severe Itching Verified 12/13/24 13:25 codeine Allergy Severe Nausea/Vom/ Verified 12/13/24 13:25 Diarrhea hydromorphone (From Dilaudid) Allergy Severe Nausea/Vom/ Verified 12/13/24 13:25 Diarrhea meperidine (From Demerol) Allergy Severe Nausea/Vom/ Verified 12/13/24 13:25 Diarrhea metronidazole (From Flagyl) Allergy Severe Hives Verified 12/13/24 13:25 milk (dairy) Allergy Severe Diarrhea Verified 12/13/24 13:25 morphine Allergy Severe Nausea/Vom/ Verified 12/13/24 13:25 Diarrhea Surgical History Hx of toe surgery History of kidney surgery History of surgery of liver Hx of surgical procedure Hx of laparoscopy History of surgery on right wrist History of foot surgery Hx of total knee replacement Hx of hysterectomy Hx of section Hx of bilateral cataract extraction Hx of appendectomy Social History Smoking Status: Never smoker Review of Systems (Anesthesia) ROS Narrative System reviewed and no additional complaints, except as documented.
[2024-12-13 11:45] VITALS: BP 154/68; PULSE 69; RESP 18; TEMP 36.8; O2SAT 98
[2024-12-13 12:11] LABS: Hematocrit 29.1 % (37-47); Hemoglobin 9.1 g/dL (12.0-15.0); Mean Corp Hgb Conc 31.3 g/dL (32-36); Mean Corpuscular Volume 90.1 fL (81-99); Mean Platelet Vol. 11.3 fl (6.2-12.0); Platelet Count 220 K/mm3 (150-450); RBC Distribution Width CV 17.0 % (11.6-14.6); RBC Distribution Width SD 55.9 fl (35.1-43.9); Red Blood Count 3.23 M/mm3 (4.2-5.4); White Blood Count 9.2 K/mm3 (4.4-11.0)
[2024-12-13 12:23] VITALS: BMI 37.8
[2024-12-13 12:32] LABS: Magnesium 2.0 mg/dL (1.5-2.2)
[2024-12-13 12:49] LABS: Prothrombin Time (Protime)PT. 17.9 SECONDS (11.7-14.9)
[2024-12-13 12:50] LABS: Partial Thromboplast Time 28.7 Seconds (24.1-36.2)
--- NOTE | 2024-12-13 13:20 | NURSING ---
Pt arrived to be checked in for right hip surgery. She has a hematoma to her left lower abdomen where she was giving herself the lovenox injections, bridging off her warfarin for surgery. She attempted to call the office to make them aware and our PAT department called Dr. Hernandez office as well. Anesthesia ordered blood work upon arrival and when Dr. Eastman saw pt she recommended she postpone surgery due to her right hip is feeling better and her hematoma is more painful to her. Dr. Eastman advised she be seen in the ER for further evaluation. This nurse transported to ER via wheelchair, with iv in place. Report given to ER nurse.
[2025-01-04 10:55] LABS: Immature Granulocytes Count 0.020 X10^3/uL (0.0-0.0)
[2025-01-04 10:56] LABS: NRBC Flagged by Analyzer 0 % (0-5)
== END | disposition home or self-care (01) ==
LOC: PAT 13:39
PROVIDERS: Anesthesiology; PCP Family Medicine; Referring Provider Specialist; Visit Provider Specialist
DX: S72.011A Unspecified intracapsular fracture of right femur, initial encounter for closed fracture (principal); I48.0 Paroxysmal atrial fibrillation; E11.9 Type 2 diabetes mellitus without complications; I10 Essential (primary) hypertension; E66.9 Obesity, unspecified; Z86.718 Personal history of other venous thrombosis and embolism; Z79.84 Long term (current) use of oral hypoglycemic drugs; E78.00 Pure hypercholesterolemia, unspecified; Z79.01 Long term (current) use of anticoagulants; Z79.899 Other long term (current) drug therapy; M16.11 Unilateral primary osteoarthritis, right hip; Z86.39 Personal history of other endocrine, nutritional and metabolic disease; Z53.09 Procedure and treatment not carried out because of other contraindication
CPT/HCPCS: 27130; 36415; 80048; 82040; 82962; 83036; 83735; 85025; 85027; 85610; 85730; 86850; 86900; 86901; 87641; A4216; J2405; J3475